=== PATIENT | female | born 1930 | race Caucasian/White ===

== ENCOUNTER 2016-09-13 12:47 | Inpatient (IN) | payer MEDICAID, OTHER ==
[~2016-09-13] VITALS: Ht 162.6 cm; Wt 70.5 kg
[2016-09-13] MEDS ORDERED: SODIUM CHLORIDE 0.9% 1,000 ML IV ONE (12:53)
[2016-09-13] MEDS ORDERED: FUROSEMIDE 40 MG/4 ML VIAL IV ONE (13:00)
[2016-09-13 13:14] LABS: Basophils # (auto) 0 uL; Basophils % (auto) 0.3 % (0.0-2.0); Eosinophils # (auto) 0 uL; Hematocrit 43.4 % (36.0-46.0); Hemoglobin 13.8 g/dL (12.2-16.2); Lymphocytes % (auto) 12.5 % (10.0-50.0); Mean Corpuscular Hgb Conc. 31.9 g/dL (32.0-36.0); Mean Corpuscular Volume 87.9 fL (80.0-100.0); Mean Platelet Volume 10.6 fL (7.4-10.4); Monocytes # (auto) 0.4 uL; Monocytes % (auto) 5.1 % (0.0-12.0); Neutrophils # (auto) 6.3 uL; Neutrophils % (auto) 82.1 % (37.0-80.0); Platelet Count (auto) 169 10^3/uL (140-450); Red Cell Distribution Width 16.3 % (11.6-16.0); White Blood Cell 7.6 10^3/uL (4.4-10.8)
[2016-09-13] MEDS ORDERED: methylPREDNISolone SOD SUCC 125 MG/2 ML VL IV ONE (13:15)
[2016-09-13] MEDS ORDERED: ALBUTEROL SULF 2.5 MG/0.5ML(0.5%) NEB SOLN NEB ONE (13:15)
[2016-09-13] MEDS ORDERED: IPRATROPIUM BROM 0.5 MG/2.5ML INH SOL NEB ONE (13:15)
[2016-09-13 13:20] LABS: Allen Test Yes; Base Excess 9.7 mmol/L (-2.0-2.0); Blood 02Sat 98.3 % (96-100); Blood COHb 0.5 % (0.5-1.5); Blood MetHb 0.3 % (0.0-1.5); HCO3 41.1 mmol/L (22-26.0); HHb 1.7 % (0.0-5.0); MODE MASK - NRB; O2Hb 97.5 % (94.0-97.0); PCO2 95.7 mmHg (35.0-45.0); PCO2(T) 95.7 mmHg (35.0-45.0); PO2 159.4 mmHg (80.0-100.0); PO2(T) 159.4 mmHg (80.0-100.0); Room ED-14; Sample Type Arterial; pH 7.251 (7.350-7.450)
[2016-09-13 13:58] LABS: Albumin 3.5 g/dL (3.4-5.0); Potassium 5.2 mmol/L (3.5-5.1); Total Protein 6.8 g/dL (6.4-8.2)
[2016-09-13 14:04] LABS: B-Type Natriuretic Peptide 1082.61 pg/mL (0-100)
[2016-09-13 14:07] LABS: Temperature: 22.5 C (20.0-25.0)
[2016-09-13 14:23] LABS: Urine Bilirubin Negative (Negative); Urine Color Yellow (Yellow); Urine Glucose Normal (Normal); Urine Ketone Negative (Negative); Urine Nitrite Negative (Negative); Urine RBC 104 /hpf (0 - 4); Urine Squamous Epithelial Cell FEW /hpf (<5); Urine Urobilinogen Normal (Negative); Urine pH 5.5 (5.0-8.0)
[2016-09-13 14:25] LABS: Urine Blood 2+ /uL (Negative)
[2016-09-13 14:30] LABS: INR > 10 (0.9-1.15)
[2016-09-13] MEDS ORDERED: MORPHINE SULF INJ 2 MG/ML SYRINGE 1ML IV PRN (14:45)
[2016-09-13] MEDS ORDERED: NITROGLYCERIN 0.4 MG SL TAB SL PRN (14:45)
[2016-09-13] MEDS ORDERED: ONDANSETRON HCL 4 MG/2 ML VIAL IV PRN (14:45)
[2016-09-13] MEDS ORDERED: hydrALAZINE HCL 20 MG/ML VL IV PRN (15:00)
[2016-09-13 15:01] LABS: Allen Test Yes; Base Excess 11.2 mmol/L (-2.0-2.0); Blood 02Sat 96.2 % (96-100); Blood COHb 0.7 % (0.5-1.5); Blood MetHb 0.2 % (0.0-1.5); HCO3 41.2 mmol/L (22-26.0); HHb 3.8 % (0.0-5.0); MODE MASK - BIPAP; O2Hb 95.3 % (94.0-97.0); PCO2 83.4 mmHg (35.0-45.0); PCO2(T) 83.4 mmHg (35.0-45.0); PO2 93.6 mmHg (80.0-100.0); PO2(T) 93.6 mmHg (80.0-100.0); Sample Type Arterial; Spont Vt 233; pH 7.312 (7.350-7.450)
[2016-09-13] MEDS: LEVOFLOXACIN 500MG 100 ML IV SCH (15:42)
[2016-09-13] MEDS ORDERED: AZITHROMYCIN 500MG/D5W 250ML 250 ML IV ONE (16:15)
[2016-09-13 16:35] LABS: Allen Test Yes; Base Excess 12.1 mmol/L (-2.0-2.0); Blood 02Sat 97.2 % (96-100); Blood COHb 0.5 % (0.5-1.5); Blood MetHb 0.2 % (0.0-1.5); HCO3 40.7 mmol/L (22-26.0); HHb 2.8 % (0.0-5.0); MODE MASK - BIPAP; O2Hb 96.5 % (94.0-97.0); PCO2 72.7 mmHg (35.0-45.0); PCO2(T) 72.7 mmHg (35.0-45.0); PO2 100.8 mmHg (80.0-100.0); PO2(T) 100.8 mmHg (80.0-100.0); Room 1009-ERT; Sample Type Arterial; Spont Vt 356; pH 7.366 (7.350-7.450)
[2016-09-13] MEDS ORDERED: PHYTONADIONE ORAL Susp 10 mg/10ml PO ONE (18:15)
[2016-09-13] MEDS: FUROSEMIDE 40 MG/4 ML VIAL IV SCH (18:23)
[2016-09-13 18:31] VITALS: BP 139/55
[2016-09-13] MEDS: ALBUTEROL SULF 2.5 MG/0.5ML(0.5%) NEB SOLN NEB SCH ×2 (18:31→23:33)
[2016-09-13] MEDS: IPRATROPIUM BROM 0.5 MG/2.5ML INH SOL NEB SCH ×2 (18:31→23:33)
[2016-09-13] MEDS ORDERED: FUROSEMIDE 20 MG/2 ML VIAL IV ONE (19:30)
[2016-09-13 20:38] LABS: Allen Test Yes; Base Excess 11.6 mmol/L (-2.0-2.0); Blood 02Sat 97.2 % (96-100); Blood COHb 0.6 % (0.5-1.5); Blood MetHb 0.2 % (0.0-1.5); HCO3 38.9 mmol/L (22-26.0); HHb 2.8 % (0.0-5.0); MODE NASAL CANNULA; O2Hb 96.4 % (94.0-97.0); PCO2 62.8 mmHg (35.0-45.0); PCO2(T) 62.8 mmHg (35.0-45.0); PO2 99.2 mmHg (80.0-100.0); PO2(T) 99.2 mmHg (80.0-100.0); Room 1009-ERT; Sample Type Arterial
[2016-09-13 23:33] VITALS: BP 143/64
[2016-09-14 02:05] VITALS: BP 155/71
[2016-09-14 03:31] VITALS: BP 155/71
[2016-09-14 04:10] LABS: Basophils # (auto) 0 uL; Basophils % (auto) 0.1 % (0.0-2.0); Eosinophils # (auto) 0 uL; Eosinophils % (auto) 0.1 % (0.0-7.0); Hemoglobin 13.5 g/dL (12.2-16.2); Lymphocytes # (auto) 0.6 uL; Lymphocytes % (auto) 12.5 % (10.0-50.0); Mean Corpuscular Hemoglobin 27.8 pg (28.0-32.0); Mean Corpuscular Volume 86.9 fL (80.0-100.0); Monocytes # (auto) 0.1 uL; Neutrophils # (auto) 4.2 uL; Neutrophils % (auto) 84.3 % (37.0-80.0); Platelet Count (auto) 152 10^3/uL (140-450); Red Cell Distribution Width 15.9 % (11.6-16.0); White Blood Cell 4.9 10^3/uL (4.4-10.8)
[2016-09-14 04:13] VITALS: BP 158/79
[2016-09-14 04:31] LABS: Albumin 3.2 g/dL (3.4-5.0); BUN/Creatinine Ratio 39.4; Calcium 8.1 mg/dL (8.5-10.1); Potassium 3.6 mmol/L (3.5-5.1)
[2016-09-14 04:34] LABS: Bilirubin, Total 1.1 mg/dL (0.2-1.0); Total Protein 6.8 g/dL (6.4-8.2)
[2016-09-14] MEDS ORDERED: SODIUM BICARBONATE 8.4 % INJ 50ML VIAL IV ONE (04:45)
[2016-09-14 04:55] LABS: INR > 10 (0.9-1.15)
[2016-09-14] MEDS ORDERED: PHYTONADIONE ORAL Susp 10 mg/10ml PO ONE (05:00)
[2016-09-14] MEDS: ALBUTEROL SULF 2.5 MG/0.5ML(0.5%) NEB SOLN NEB SCH ×4 (06:05→22:31)
[2016-09-14] MEDS: IPRATROPIUM BROM 0.5 MG/2.5ML INH SOL NEB SCH ×4 (06:05→22:32)
[2016-09-14] MEDS: FUROSEMIDE 40 MG/4 ML VIAL IV SCH ×2 (06:52→19:09)
[2016-09-14] MEDS ORDERED: FUROSEMIDE 20 MG/2 ML VIAL IV ONE (07:00)
[2016-09-14 07:27] LABS: Base Excess 21.5 mmol/L (-2.0-2.0); Blood 02Sat 90.5 % (96-100); Blood COHb 0.6 % (0.5-1.5); Blood MetHb 0.3 % (0.0-1.5); HCO3 49.9 mmol/L (22-26.0); HHb 9.4 % (0.0-5.0); MODE NASAL CANNULA; O2Hb 89.7 % (94.0-97.0); PCO2 71.1 mmHg (35.0-45.0); PCO2(T) 71.1 mmHg (35.0-45.0); PO2 58.4 mmHg (80.0-100.0); PO2(T) 58.4 mmHg (80.0-100.0); Room 1009-ERT; Sample Type Arterial; pH 7.464 (7.350-7.450)
[2016-09-14] MEDS ORDERED: AZITHROMYCIN 500MG/D5W 250ML 250 ML IV SCH (10:00)
[2016-09-14] MEDS: LEVOFLOXACIN 500MG 100 ML IV SCH (10:13)
[2016-09-14 10:55] LABS: Prothrombin Time 85.1 sec (9.37-12.3)
[2016-09-14 10:56] LABS: INR 7.65 (0.9-1.15)
[2016-09-14 18:15] VITALS: BP 143/78
[2016-09-14 20:00] VITALS: BP 104/62
[2016-09-14] MEDS: DRONEDARONE HCL 400 MG TAB PO SCH (21:47)
[2016-09-14 22:00] VITALS: BP 104/62
[2016-09-15 05:00] VITALS: BP 91/46
[2016-09-15] MEDS: FUROSEMIDE 40 MG/4 ML VIAL IV SCH ×2 (05:13→17:47)
[2016-09-15 06:26] LABS: Basophils # (auto) 0 uL; Eosinophils # (auto) 0 uL; Lymphocytes # (auto) 1.4 uL; Lymphocytes % (auto) 7.7 % (10.0-50.0); Mean Corpuscular Hgb Conc. 32.5 g/dL (32.0-36.0); Mean Corpuscular Volume 86.3 fL (80.0-100.0); Mean Platelet Volume 9.9 fL (7.4-10.4); Monocytes # (auto) 1.5 uL; Monocytes % (auto) 8.4 % (0.0-12.0); Neutrophils # (auto) 15.5 uL; Neutrophils % (auto) 83.9 % (37.0-80.0); Platelet Count (auto) 211 10^3/uL (140-450); White Blood Cell 18.5 10^3/uL (4.4-10.8)
[2016-09-15] MEDS: IPRATROPIUM BROM 0.5 MG/2.5ML INH SOL NEB SCH ×4 (06:26→23:48)
[2016-09-15] MEDS: ALBUTEROL SULF 2.5 MG/0.5ML(0.5%) NEB SOLN NEB SCH ×4 (06:27→23:48)
[2016-09-15] MEDS: FUROSEMIDE 20 MG/2 ML VIAL IV SCH ×2 (06:32→09:46)
[2016-09-15 06:39] LABS: Partial Thromboplastin Time 39.9 sec (22.64-33.71)
[2016-09-15 06:40] LABS: INR 2.81 (0.9-1.15); Prothrombin Time 30.9 sec (9.37-12.3)
[2016-09-15 08:00] VITALS: BP_SYST 80; BP_SYST 85; BP_DIAS 53
[2016-09-15] MEDS ORDERED: SODIUM CHL 0.9% 500 ML IV ONE (08:22)
[2016-09-15] MEDS ORDERED: VANCOMYCIN PER PHARMACY 0 MG IV SCH ×2 (08:30→08:45)
[2016-09-15] MEDS: VANCOMYCIN 1GM/250ML D5W 250 ML IV SCH (09:00)
[2016-09-15 09:17] LABS: Basophils # (auto) 0 uL; Basophils % (auto) 0.3 % (0.0-2.0); Eosinophils # (auto) 0 uL; Hematocrit 31.8 % (36.0-46.0); Hemoglobin 10.3 g/dL (12.2-16.2); Lymphocytes # (auto) 1.6 uL; Lymphocytes % (auto) 9.9 % (10.0-50.0); Mean Corpuscular Hgb Conc. 32.3 g/dL (32.0-36.0); Mean Corpuscular Volume 86.8 fL (80.0-100.0); Mean Platelet Volume 9.2 fL (7.4-10.4); Monocytes % (auto) 5.9 % (0.0-12.0); Neutrophils # (auto) 13.9 uL; Neutrophils % (auto) 83.9 % (37.0-80.0); Platelet Count (auto) 183 10^3/uL (140-450); Red Cell Distribution Width 16.2 % (11.6-16.0); White Blood Cell 16.6 10^3/uL (4.4-10.8)
[2016-09-15 09:33] LABS: Partial Thromboplastin Time 39.7 sec (22.64-33.71)
[2016-09-15 09:38] LABS: Albumin 2.5 g/dL (3.4-5.0); BUN/Creatinine Ratio 35.3; Bilirubin, Total 1.7 mg/dL (0.2-1.0); Calcium 7.8 mg/dL (8.5-10.1); Potassium 3.6 mmol/L (3.5-5.1); Total Protein 4.8 g/dL (6.4-8.2)
[2016-09-15] MEDS: SODIUM CHLORIDE 0.9% 1,000 ML IV SCH ×2 (09:46→18:22)
[2016-09-15] MEDS: DRONEDARONE HCL 400 MG TAB PO SCH ×2 (09:48→21:01)
[2016-09-15 09:53] LABS: INR 2.63 (0.9-1.15)
[2016-09-15 11:09] LABS: Fibrinogen 185.1 mg/dL (177-375)
[2016-09-15 12:00] VITALS: BP 107/45
[2016-09-15 12:04] LABS: Allen Test No; Base Excess 19.6 mmol/L (-2.0-2.0); Blood 02Sat 91.1 % (96-100); Blood COHb 0.4 % (0.5-1.5); Blood MetHb 0.3 % (0.0-1.5); HCO3 46.1 mmol/L (22-26.0); HHb 8.8 % (0.0-5.0); MODE NASAL CANNULA; O2Hb 90.5 % (94.0-97.0); PCO2 64.3 mmHg (35.0-45.0); PCO2(T) 64.3 mmHg (35.0-45.0); PO2 62.8 mmHg (80.0-100.0); PO2(T) 62.8 mmHg (80.0-100.0); Room 0237T; Sample Type Arterial; pH 7.473 (7.350-7.450)
[2016-09-15] MEDS: LEVOFLOXACIN 250MG 50 ML IV SCH (12:43)
[2016-09-15] MEDS ORDERED: SIMV5TAB50 PO (12:50)
[2016-09-15] MEDS ORDERED: FURO20TA PO (12:50)
[2016-09-15] MEDS ORDERED: WARF1TAB36 PO (12:50)
[2016-09-15] MEDS ORDERED: DIGO0.1262 PO (12:50)
[2016-09-15] MEDS ORDERED: DILT30TA24 PO (12:53)
[2016-09-15] MEDS ORDERED: CARV3.1240 PO (12:53)
[2016-09-15 16:06] VITALS: BP 106/55
[2016-09-15] MEDS: PHYTONADIONE (VIT K)10 MG/ML 1ML VIAL SUBCUT SCH (16:21)
[2016-09-15 18:57] LABS: Allen Test Yes; Base Excess 15.8 mmol/L (-2.0-2.0); Blood 02Sat 91.7 % (96-100); Blood COHb 0.3 % (0.5-1.5); Blood MetHb 0.2 % (0.0-1.5); HHb 8.3 % (0.0-5.0); MODE MASK - BIPAP; O2Hb 91.2 % (94.0-97.0); PCO2 53.9 mmHg (35.0-45.0); PCO2(T) 53.9 mmHg (35.0-45.0); PO2 64.5 mmHg (80.0-100.0); PO2(T) 64.5 mmHg (80.0-100.0); Room 0266D; Sample Type Arterial; pH 7.499 (7.350-7.450)
[2016-09-15 19:37] VITALS: BP 121/56
[2016-09-15 19:48] VITALS: BP 121/56
[2016-09-16] VITALS: BP 113/52
[2016-09-16 00:25] LABS: Allen Test Yes; Base Excess 17.9 mmol/L (-2.0-2.0); Blood 02Sat 92.3 % (96-100); Blood COHb 0.4 % (0.5-1.5); Blood MetHb 0.2 % (0.0-1.5); HCO3 45.4 mmol/L (22-26.0); HHb 7.7 % (0.0-5.0); MODE NASAL CANNULA; O2Hb 91.7 % (94.0-97.0); PO2 72.4 mmHg (80.0-100.0); PO2(T) 72.4 mmHg (80.0-100.0); Room 0266D; Sample Type Arterial; pH 7.418 (7.350-7.450)
[2016-09-16 04:00] VITALS: BP 132/73
[2016-09-16] MEDS: SODIUM CHLORIDE 0.9% 1,000 ML IV SCH ×2 (04:22→12:00)
[2016-09-16] MEDS: FUROSEMIDE 40 MG/4 ML VIAL IV SCH (05:02)
[2016-09-16 06:34] LABS: Partial Thromboplastin Time 39.8 sec (22.64-33.71)
[2016-09-16 06:36] LABS: INR 1.78 (0.9-1.15); Prothrombin Time 19.5 sec (9.37-12.3)
[2016-09-16] MEDS: IPRATROPIUM BROM 0.5 MG/2.5ML INH SOL NEB SCH ×4 (07:33→23:40)
[2016-09-16] MEDS: ALBUTEROL SULF 2.5 MG/0.5ML(0.5%) NEB SOLN NEB SCH ×4 (07:33→23:40)
[2016-09-16 08:00] VITALS: BP 105/50
[2016-09-16] MEDS: VANCOMYCIN 1GM/250ML D5W 250 ML IV SCH (09:04)
[2016-09-16 10:46] LABS: Allen Test Yes; Base Excess 14.3 mmol/L (-2.0-2.0); Blood 02Sat 87.3 % (96-100); Blood COHb 0.3 % (0.5-1.5); Blood MetHb 0.2 % (0.0-1.5); HCO3 39.6 mmol/L (22-26.0); HHb 12.6 % (0.0-5.0); MODE NASAL CANNULA; O2Hb 86.9 % (94.0-97.0); PCO2 54.1 mmHg (35.0-45.0); PCO2(T) 54.1 mmHg (35.0-45.0); PO2 53.5 mmHg (80.0-100.0); PO2(T) 53.5 mmHg (80.0-100.0); Room 0266D; Sample Type Arterial; pH 7.482 (7.350-7.450)
[2016-09-16] MEDS: FUROSEMIDE 20 MG/2 ML VIAL IV SCH (11:18)
[2016-09-16] MEDS: DRONEDARONE HCL 400 MG TAB PO SCH ×3 (11:19→21:03)
[2016-09-16] MEDS: LEVOFLOXACIN 250MG 50 ML IV SCH (11:19)
[2016-09-16 12:00] VITALS: BP 107/46
[2016-09-16 12:07] LABS: Antiproteinase 3 (PR-3) Ab <3.5 U/mL (0.0-3.5)
[2016-09-16 14:51] LABS: Body Fluid Polymorphonuclear 18 %
[2016-09-16 16:00] VITALS: BP 124/50
[2016-09-16] MEDS: PHYTONADIONE (VIT K)10 MG/ML 1ML VIAL SUBCUT SCH (18:02)
[2016-09-16 20:00] VITALS: BP 99/46
[2016-09-17] VITALS: BP 102/53
[2016-09-17] MEDS: SODIUM CHLORIDE 0.9% 1,000 ML IV SCH ×3 (00:22→20:22)
[2016-09-17 00:42] VITALS: BP 99/46
[2016-09-17 04:00] VITALS: BP 100/64
[2016-09-17 05:16] LABS: Albumin 2.3 g/dL (3.4-5.0); Calcium 7.6 mg/dL (8.5-10.1); Potassium 3.3 mmol/L (3.5-5.1)
[2016-09-17 05:18] LABS: Partial Thromboplastin Time 36.7 sec (22.64-33.71)
[2016-09-17 05:20] LABS: BUN/Creatinine Ratio 40.9; Phosphorus 1.9 mg/dL (2.5-4.90)
[2016-09-17 05:26] LABS: Bilirubin, Total 1.6 mg/dL (0.2-1.0); Total Protein 4.8 g/dL (6.4-8.2)
[2016-09-17 05:33] LABS: INR 1.35 (0.9-1.15); Prothrombin Time 14.8 sec (9.37-12.3)
[2016-09-17] MEDS: IPRATROPIUM BROM 0.5 MG/2.5ML INH SOL NEB SCH ×3 (07:32→19:42)
[2016-09-17] MEDS: ALBUTEROL SULF 2.5 MG/0.5ML(0.5%) NEB SOLN NEB SCH ×3 (07:32→19:42)
[2016-09-17] MEDS: VANCOMYCIN 1GM/250ML D5W 250 ML IV SCH (09:01)
[2016-09-17] MEDS: FUROSEMIDE 20 MG/2 ML VIAL IV SCH (10:00)
[2016-09-17] MEDS ORDERED: POTASSIUM CHL 20 Meq TABLET PO ONE (10:00)
[2016-09-17] MEDS ORDERED: POTASSIUM PHOSPHATE 44 MEQ in SODIUM CHL 0.9% 250 ML IV ONE (10:15)
[2016-09-17] MEDS: LEVOFLOXACIN 250MG 50 ML IV SCH (10:44)
[2016-09-17] MEDS: DRONEDARONE HCL 400 MG TAB PO SCH ×2 (10:46→21:27)
[2016-09-17] MEDS: DOCUSATE SOD 100 MG CAP PO PRN (10:46)
[2016-09-17 12:03] VITALS: BP 116/58
[2016-09-17 16:00] VITALS: BP 107/53
[2016-09-17] MEDS: PHYTONADIONE (VIT K)10 MG/ML 1ML VIAL SUBCUT SCH (16:44)
[2016-09-17 20:00] VITALS: BP 103/49
[2016-09-18] VITALS: BP 109/58
[2016-09-18] MEDS: IPRATROPIUM BROM 0.5 MG/2.5ML INH SOL NEB SCH ×4 (00:41→19:09)
[2016-09-18] MEDS: ALBUTEROL SULF 2.5 MG/0.5ML(0.5%) NEB SOLN NEB SCH ×4 (00:41→19:09)
[2016-09-18 03:59] VITALS: BP 104/51
[2016-09-18] MEDS: SODIUM CHLORIDE 0.9% 1,000 ML IV SCH ×2 (04:55→08:43)
[2016-09-18 06:14] LABS: Basophils # (auto) 0 uL; Basophils % (auto) 0.1 % (0.0-2.0); CONDITION AutoValidated; Eosinophils # (auto) 0.1 uL; Eosinophils % (auto) 0.5 % (0.0-7.0); Hematocrit 26.5 % (36.0-46.0); Hemoglobin 8.6 g/dL (12.2-16.2); Lymphocytes # (auto) 1.2 uL; Lymphocytes % (auto) 11.8 % (10.0-50.0); Mean Corpuscular Hemoglobin 28.1 pg (28.0-32.0); Mean Corpuscular Hgb Conc. 32.3 g/dL (32.0-36.0); Mean Corpuscular Volume 86.9 fL (80.0-100.0); Mean Platelet Volume 9.3 fL (7.4-10.4); Monocytes # (auto) 1.1 uL; Monocytes % (auto) 11.2 % (0.0-12.0); Neutrophils # (auto) 7.8 uL; Neutrophils % (auto) 76.4 % (37.0-80.0); Red Cell Distribution Width 16.3 % (11.6-16.0); White Blood Cell 10.1 10^3/uL (4.4-10.8)
[2016-09-18 06:17] LABS: Partial Thromboplastin Time 33.6 sec (22.64-33.71); Platelet Count (auto) 150 10^3/uL (140-450)
[2016-09-18 06:22] LABS: Potassium 3.8 mmol/L (3.5-5.1)
[2016-09-18 06:24] LABS: INR 1.21 (0.9-1.15); Prothrombin Time 13.2 sec (9.37-12.3)
[2016-09-18 06:26] LABS: BUN/Creatinine Ratio 33.3; Calcium 7.5 mg/dL (8.5-10.1)
[2016-09-18] MEDS: VANCOMYCIN 1GM/250ML D5W 250 ML IV SCH (08:42)
[2016-09-18] MEDS: FUROSEMIDE 20 MG/2 ML VIAL IV SCH (10:31)
[2016-09-18] MEDS: ENOXAPARIN SOD 40 MG/0.4 ML SYRINGE SC SCH (10:32)
[2016-09-18] MEDS: DRONEDARONE HCL 400 MG TAB PO SCH ×2 (10:32→22:11)
[2016-09-18] MEDS: LEVOFLOXACIN 250MG 50 ML IV SCH (11:38)
[2016-09-18 11:54] VITALS: BP 118/63
[2016-09-18 16:00] VITALS: BP 104/47
[2016-09-18] MEDS ORDERED: WARFARIN SODIUM 2 MG TAB PO ONE (17:00)
[2016-09-18] MEDS: LACTULOSE 20Gm/30ML SOLN PO PRN (18:30)
[2016-09-18] MEDS ORDERED: BISACODYL 10 MG RECT SUPP PR ONE (19:45)
[2016-09-18 20:00] VITALS: BP 131/76
[2016-09-19] VITALS: BP 116/75
[2016-09-19] MEDS: IPRATROPIUM BROM 0.5 MG/2.5ML INH SOL NEB SCH ×4 (00:27→18:11)
[2016-09-19] MEDS: ALBUTEROL SULF 2.5 MG/0.5ML(0.5%) NEB SOLN NEB SCH ×4 (00:27→18:11)
[2016-09-19] MEDS: SODIUM CHLORIDE 0.9% 1,000 ML IV SCH ×3 (02:22→22:06)
[2016-09-19 06:21] LABS: INR 1.16 (0.9-1.15); Prothrombin Time 12.7 sec (9.37-12.3)
[2016-09-19 06:51] LABS: Basophils # (auto) 0 uL; CONDITION AutoValidated; DEFINITIVE SEE PRINTOUT; Eosinophils # (auto) 0 uL; Eosinophils % (auto) 0.3 % (0.0-7.0); Hemoglobin 8.4 g/dL (12.2-16.2); Lymphocytes # (auto) 1.2 uL; Lymphocytes % (auto) 8.5 % (10.0-50.0); Mean Corpuscular Hemoglobin 28.4 pg (28.0-32.0); Mean Corpuscular Hgb Conc. 32.5 g/dL (32.0-36.0); Mean Corpuscular Volume 87.3 fL (80.0-100.0); Mean Platelet Volume 9.3 fL (7.4-10.4); Monocytes # (auto) 1.6 uL; Monocytes % (auto) 11.7 % (0.0-12.0); Neutrophils # (auto) 11.1 uL; Neutrophils % (auto) 79.5 % (37.0-80.0); Platelet Count (auto) 147 10^3/uL (140-450); Red Cell Distribution Width 16.7 % (11.6-16.0)
[2016-09-19 07:08] LABS: Albumin 2.3 g/dL (3.4-5.0); BUN/Creatinine Ratio 27.1; Bilirubin, Total 2.3 mg/dL (0.2-1.0); Calcium 7.2 mg/dL (8.5-10.1); Potassium 3.3 mmol/L (3.5-5.1); Total Protein 4.7 g/dL (6.4-8.2)
[2016-09-19] MEDS: ENOXAPARIN SOD 40 MG/0.4 ML SYRINGE SC SCH (09:57)
[2016-09-19] MEDS: FUROSEMIDE 20 MG/2 ML VIAL IV SCH (10:09)
[2016-09-19] MEDS: LEVOFLOXACIN 250MG 50 ML IV SCH (10:09)
[2016-09-19] MEDS: DRONEDARONE HCL 400 MG TAB PO SCH ×2 (10:09→21:26)
[2016-09-19 11:59] VITALS: BP 132/70
[2016-09-19 16:00] VITALS: BP 111/57
[2016-09-19] MEDS ORDERED: POTASSIUM CHL 20 Meq TABLET PO ONE (17:00)
[2016-09-19] MEDS: VANCOMYCIN 750 MG in D5W 5% 250 ML IV SCH (17:37)
[2016-09-19 19:52] VITALS: BP 108/55
[2016-09-20] MEDS: IPRATROPIUM BROM 0.5 MG/2.5ML INH SOL NEB SCH ×4 (00:34→18:16)
[2016-09-20] MEDS: ALBUTEROL SULF 2.5 MG/0.5ML(0.5%) NEB SOLN NEB SCH ×4 (00:34→18:16)
[2016-09-20 04:40] VITALS: BP 106/56
[2016-09-20 07:18] LABS: BUN/Creatinine Ratio 20.9; Calcium 7.4 mg/dL (8.5-10.1); Potassium 3.9 mmol/L (3.5-5.1)
[2016-09-20] MEDS: SODIUM CHLORIDE 0.9% 1,000 ML IV SCH ×2 (07:43→17:48)
[2016-09-20 08:44] VITALS: BP 102/50
[2016-09-20] MEDS: ENOXAPARIN SOD 40 MG/0.4 ML SYRINGE SC SCH (10:02)
[2016-09-20] MEDS: DRONEDARONE HCL 400 MG TAB PO SCH ×2 (10:03→21:57)
[2016-09-20] MEDS: FUROSEMIDE 20 MG/2 ML VIAL IV SCH (10:05)
[2016-09-20] MEDS: LEVOFLOXACIN 250MG 50 ML IV SCH (10:11)
[2016-09-20 12:37] LABS: Basophils # (auto) 0 uL; CONDITION Y; DEFINITIVE SEE PRINTOUT; Eosinophils # (auto) 0 uL; Eosinophils % (auto) 0.2 % (0.0-7.0); Hematocrit 25.5 % (36.0-46.0); Hemoglobin 8.3 g/dL (12.2-16.2); Lymphocytes # (auto) 0.8 uL; Lymphocytes % (auto) 4.6 % (10.0-50.0); Mean Corpuscular Hgb Conc. 32.5 g/dL (32.0-36.0); Mean Corpuscular Volume 89.1 fL (80.0-100.0); Monocytes % (auto) 11.2 % (0.0-12.0); Neutrophils # (auto) 15.3 uL; Platelet Count (auto) 159 10^3/uL (140-450); Red Cell Distribution Width 17.1 % (11.6-16.0); White Blood Cell 18.2 10^3/uL (4.4-10.8)
[2016-09-20 12:40] VITALS: BP 108/46
[2016-09-20 12:52] LABS: Partial Thromboplastin Time 39.2 sec (22.64-33.71)
[2016-09-20 12:53] LABS: INR 1.2 (0.9-1.15); Prothrombin Time 13.1 sec (9.37-12.3)
[2016-09-20 13:17] VITALS: BP 108/46
[2016-09-20 16:45] VITALS: BP 122/56
[2016-09-20] MEDS: VANCOMYCIN 750 MG in D5W 5% 250 ML IV SCH (17:47)
[2016-09-20 21:50] VITALS: BP 117/60
[2016-09-21] MEDS: IPRATROPIUM BROM 0.5 MG/2.5ML INH SOL NEB SCH ×4 (00:22→19:10)
[2016-09-21] MEDS: ALBUTEROL SULF 2.5 MG/0.5ML(0.5%) NEB SOLN NEB SCH ×4 (00:22→19:10)
[2016-09-21 05:08] VITALS: BP 122/65
[2016-09-21] MEDS: SODIUM CHLORIDE 0.9% 1,000 ML IV SCH ×3 (06:11→17:27)
[2016-09-21 07:17] LABS: Basophils # (auto) 0 uL; Basophils % (auto) 0.1 % (0.0-2.0); CONDITION Y; DEFINITIVE SEE PRINTOUT; Eosinophils # (auto) 0 uL; Eosinophils % (auto) 0.2 % (0.0-7.0); Hemoglobin 8.3 g/dL (12.2-16.2); Lymphocytes # (auto) 0.8 uL; Lymphocytes % (auto) 4.3 % (10.0-50.0); Mean Corpuscular Hemoglobin 29.2 pg (28.0-32.0); Mean Corpuscular Hgb Conc. 33.1 g/dL (32.0-36.0); Mean Corpuscular Volume 88.3 fL (80.0-100.0); Mean Platelet Volume 9.3 fL (7.4-10.4); Monocytes # (auto) 1.8 uL; Monocytes % (auto) 10.5 % (0.0-12.0); Neutrophils # (auto) 14.8 uL; Neutrophils % (auto) 84.9 % (37.0-80.0); Platelet Count (auto) 159 10^3/uL (140-450); Red Cell Distribution Width 17.2 % (11.6-16.0); White Blood Cell 17.4 10^3/uL (4.4-10.8)
[2016-09-21 07:34] LABS: Reticulocyte Count 3.77 % (0.5-1.5)
[2016-09-21 08:28] VITALS: BP 114/64
[2016-09-21] MEDS: DOCUSATE SOD 100 MG CAP PO PRN (08:37)
[2016-09-21] MEDS: DRONEDARONE HCL 400 MG TAB PO SCH ×2 (09:56→21:50)
[2016-09-21] MEDS: ENOXAPARIN SOD 40 MG/0.4 ML SYRINGE SC SCH (09:56)
[2016-09-21] MEDS: FUROSEMIDE 20 MG/2 ML VIAL IV SCH (09:56)
[2016-09-21] MEDS: LEVOFLOXACIN 250MG 50 ML IV SCH (11:52)
[2016-09-21 12:15] VITALS: BP 122/58
[2016-09-21 16:18] VITALS: BP 119/61
[2016-09-21] MEDS: VANCOMYCIN 1GM/250ML D5W 250 ML IV SCH (17:25)
[2016-09-21] MEDS: LACTULOSE 20Gm/30ML SOLN PO PRN (18:39)
[2016-09-21 21:11] VITALS: BP 128/67
[2016-09-21] MEDS: FERROUS SULFATE 300 MG/5 ML ORAL LIQ GT SCH (21:50)
[2016-09-22] MEDS ORDERED: DIGOXIN (250MCG/ML) 2 ML AMPULE IV ONE (00:30)
[2016-09-22] MEDS ORDERED: FUROSEMIDE 40 MG/4 ML VIAL IV ONE (00:30)
[2016-09-22] MEDS ORDERED: DIGOXIN (250MCG/ML) 2 ML AMPULE ONE (00:33)
[2016-09-22] MEDS ORDERED: FUROSEMIDE 40 MG/4 ML VIAL ONE (00:33)
[2016-09-22] MEDS: ALPRAZolam 0.25 MG TAB PO PRN (01:49)
[2016-09-22 05:00] VITALS: BP 119/63
[2016-09-22] MEDS: SODIUM CHLOR 0.9% PF (SALINE LOCK) 10ML VIAL IV SCH ×3 (06:00→22:04)
[2016-09-22] MEDS: ALBUTEROL SULF 2.5 MG/0.5ML(0.5%) NEB SOLN NEB SCH ×3 (06:06→18:15)
[2016-09-22] MEDS: IPRATROPIUM BROM 0.5 MG/2.5ML INH SOL NEB SCH ×3 (06:06→18:15)
[2016-09-22 06:36] LABS: INR 1.12 (0.9-1.15); Partial Thromboplastin Time 37.3 sec (22.64-33.71); Prothrombin Time 12.2 sec (9.37-12.3)
[2016-09-22 08:00] VITALS: BP 125/33
[2016-09-22] MEDS: DRONEDARONE HCL 400 MG TAB PO SCH ×2 (10:17→21:58)
[2016-09-22] MEDS: ENOXAPARIN SOD 40 MG/0.4 ML SYRINGE SC SCH (10:17)
[2016-09-22] MEDS: FERROUS SULFATE 300 MG/5 ML ORAL LIQ GT SCH ×2 (10:17→21:58)
[2016-09-22] MEDS: FUROSEMIDE 20 MG/2 ML VIAL IV SCH (10:18)
[2016-09-22] MEDS: LEVOFLOXACIN 250MG 50 ML IV SCH (11:45)
[2016-09-22 12:59] VITALS: BP 135/62
[2016-09-22 17:25] VITALS: BP 129/57
[2016-09-22] MEDS: VANCOMYCIN 1GM/250ML D5W 250 ML IV SCH (18:17)
[2016-09-22 20:53] LABS: Allen Test Yes; Base Excess 4.6 mmol/L (-2.0-2.0); Blood 02Sat 85.4 % (96-100); Blood MetHb 0.3 % (0.0-1.5); HCO3 29.7 mmol/L (22-26.0); HHb 14.3 % (0.0-5.0); MODE MASK - VENTI; O2Hb 83.4 % (94.0-97.0); PCO2 46.8 mmHg (35.0-45.0); PCO2(T) 46.8 mmHg (35.0-45.0); PO2 51.6 mmHg (80.0-100.0); PO2(T) 51.6 mmHg (80.0-100.0); Room 0234T; Sample Type Arterial; pH 7.421 (7.350-7.450)
[2016-09-22 21:30] VITALS: BP 109/49
[2016-09-23 05:00] VITALS: BP 117/54
[2016-09-23 05:07] LABS: Haptoglobin <10 mg/dL (34-200)
[2016-09-23 05:32] LABS: INR 1.21 (0.9-1.15); Partial Thromboplastin Time 35.2 sec (22.64-33.71)
[2016-09-23 05:34] LABS: Prothrombin Time 13.2 sec (9.37-12.3)
[2016-09-23] MEDS: SODIUM CHLOR 0.9% PF (SALINE LOCK) 10ML VIAL IV SCH ×3 (05:34→21:44)
[2016-09-23 05:42] LABS: Albumin 2.2 g/dL (3.4-5.0); BUN/Creatinine Ratio 19.1; Calcium 7.6 mg/dL (8.5-10.1); Potassium 3.1 mmol/L (3.5-5.1)
[2016-09-23 05:45] LABS: Bilirubin, Total 3.3 mg/dL (0.2-1.0); Total Protein 5.3 g/dL (6.4-8.2)
[2016-09-23] MEDS: ALBUTEROL SULF 2.5 MG/0.5ML(0.5%) NEB SOLN NEB SCH ×3 (06:28→18:34)
[2016-09-23] MEDS: IPRATROPIUM BROM 0.5 MG/2.5ML INH SOL NEB SCH ×3 (06:28→18:33)
[2016-09-23 08:02] LABS: Basophils # (auto) 0 uL; Basophils % (auto) 0.1 % (0.0-2.0); CONDITION Y; DEFINITIVE SEE PRINTOUT; Eosinophils # (auto) 0 uL; Eosinophils % (auto) 0.1 % (0.0-7.0); Hematocrit 29.4 % (36.0-46.0); Hemoglobin 9.5 g/dL (12.2-16.2); Lymphocytes # (auto) 0.7 uL; Lymphocytes % (auto) 4.4 % (10.0-50.0); Mean Corpuscular Hemoglobin 28.8 pg (28.0-32.0); Mean Corpuscular Hgb Conc. 32.2 g/dL (32.0-36.0); Mean Corpuscular Volume 89.4 fL (80.0-100.0); Monocytes # (auto) 1.4 uL; Neutrophils # (auto) 13.9 uL; Neutrophils % (auto) 86.4 % (37.0-80.0); Platelet Count (auto) 189 10^3/uL (140-450); Red Cell Distribution Width 19.4 % (11.6-16.0); White Blood Cell 16.1 10^3/uL (4.4-10.8)
[2016-09-23 09:00] VITALS: BP 134/61
[2016-09-23] MEDS: FERROUS SULFATE 300 MG/5 ML ORAL LIQ GT SCH ×2 (10:00→21:43)
[2016-09-23] MEDS: ENOXAPARIN SOD 40 MG/0.4 ML SYRINGE SC SCH (10:00)
[2016-09-23] MEDS: LEVOFLOXACIN 250MG 50 ML IV SCH (10:01)
[2016-09-23] MEDS: DRONEDARONE HCL 400 MG TAB PO SCH ×2 (10:01→21:43)
[2016-09-23] MEDS: FUROSEMIDE 20 MG/2 ML VIAL IV SCH (10:02)
[2016-09-23] MEDS: ACETYLCYSTEINE 10 %(100MG/ML) SOL 4ML NEB SCH ×2 (11:54→18:34)
[2016-09-23 13:00] VITALS: BP 128/56
[2016-09-23] MEDS ORDERED: ACETYLCYSTEINE 10 %(100MG/ML) SOL 4ML NEB SCH (14:00)
[2016-09-23] MEDS ORDERED: POTASSIUM CHLORIDE 20 MEQ, LIDOCAINE 1% (LOCAL ANESTH.) 2 ML in SODIUM CHL 0.9% 100 ML IV ONE (14:00)
[2016-09-23] MEDS: VANCOMYCIN 1GM/250ML D5W 250 ML IV SCH (17:11)
[2016-09-23 17:23] VITALS: BP 116/58
[2016-09-23 21:30] VITALS: BP 105/53
[2016-09-23] MEDS: BOOST PLUS 8 ounce PO SCH (21:44)
[2016-09-24 02:59] VITALS: BP 105/53
[2016-09-24 04:59] VITALS: BP 100/50
[2016-09-24] MEDS: IPRATROPIUM BROM 0.5 MG/2.5ML INH SOL NEB SCH ×5 (06:21→22:00)
[2016-09-24] MEDS: ALBUTEROL SULF 2.5 MG/0.5ML(0.5%) NEB SOLN NEB SCH ×5 (06:21→22:00)
[2016-09-24] MEDS: ACETYLCYSTEINE 10 %(100MG/ML) SOL 4ML NEB SCH ×5 (06:22→22:00)
[2016-09-24] MEDS: SODIUM CHLOR 0.9% PF (SALINE LOCK) 10ML VIAL IV SCH ×3 (06:29→21:26)
[2016-09-24] MEDS: BOOST PLUS 8 ounce PO SCH ×3 (06:29→21:27)
[2016-09-24] MEDS ORDERED: GLYCOPYRROLATE 0.2 MG/ML 1ML VIAL ONE (08:00)
[2016-09-24] MEDS ORDERED: NALOXONE HCL 0.4 MG/ML VIAL ONE (08:03)
[2016-09-24] MEDS ORDERED: EPINEPHrine HCL 1 MG/1 ML AMP ONE (08:04)
[2016-09-24] MEDS ORDERED: SODIUM CHLORIDE LOCK 30 ML ONE (08:04)
[2016-09-24] MEDS ORDERED: LIDOCAINE 2%HCL (LOCAL ANESTH.) INJ 20ML MDV ONE (08:04)
[2016-09-24] MEDS ORDERED: LIDOCAINE HCL 2% TOP JELLY 5ML TOP ONE (08:05)
[2016-09-24] MEDS ORDERED: fentaNYL CITRATE 100 MCG/2 ML VL ONE (08:59)
[2016-09-24 09:00] VITALS: BP 104/49
[2016-09-24] MEDS: MIDAZOLAM HCL 5 MG/ML-1ML VIAL ONE ×2 (09:22→09:33)
[2016-09-24] MEDS ORDERED: METOPROLOL TARTRATE 1MG/1ML-5ML VIAL IV ONE (10:17)
[2016-09-24] MEDS ORDERED: SOD CHL 0.9%/ KCL 20MEQ 1,000 ML IV STA (10:18)
[2016-09-24] MEDS: POTASSIUM CHL 20 Meq TABLET PO ONE ×2 (10:29→13:00)
[2016-09-24] MEDS: METOPROLOL TARTRATE 1MG/1ML-5ML VIAL IV ONE ×2 (10:29→13:00)
[2016-09-24] MEDS: FERROUS SULFATE 300 MG/5 ML ORAL LIQ GT SCH ×2 (13:00→21:26)
[2016-09-24] MEDS: FUROSEMIDE 20 MG/2 ML VIAL IV SCH (13:00)
[2016-09-24] MEDS: ENOXAPARIN SOD 40 MG/0.4 ML SYRINGE SC SCH (13:00)
[2016-09-24] MEDS: METOPROLOL TARTRATE 1MG/1ML-5ML VIAL IV SCH ×2 (13:00→18:45)
[2016-09-24] MEDS: DRONEDARONE HCL 400 MG TAB PO SCH ×2 (13:00→21:26)
[2016-09-24] MEDS: LEVOFLOXACIN 250MG 50 ML IV SCH (14:16)
[2016-09-24 14:19] LABS: B-Type Natriuretic Peptide 1657.8 pg/mL (0-100)
[2016-09-24 14:28] LABS: Temperature: 24.3 C (20.0-25.0)
[2016-09-24 16:00] VITALS: BP 103/54
[2016-09-24] MEDS ORDERED: IPRATROPIUM BROM 0.5 MG/2.5ML INH SOL NEB SCH (18:00)
[2016-09-24] MEDS: VANCOMYCIN 1GM/250ML D5W 250 ML IV SCH (18:12)
[2016-09-24 20:00] VITALS: BP 100/68
[2016-09-25] VITALS: BP 115/60
[2016-09-25 04:00] VITALS: BP 103/56
[2016-09-25 05:07] LABS: Basophils # (auto) 0 uL; CONDITION Y; DEFINITIVE SEE PRINTOUT; Eosinophils # (auto) 0 uL; Eosinophils % (auto) 0.2 % (0.0-7.0); Hematocrit 30.1 % (36.0-46.0); Hemoglobin 9.8 g/dL (12.2-16.2); Lymphocytes # (auto) 0.8 uL; Mean Corpuscular Hemoglobin 29.2 pg (28.0-32.0); Mean Corpuscular Hgb Conc. 32.5 g/dL (32.0-36.0); Mean Corpuscular Volume 89.9 fL (80.0-100.0); Mean Platelet Volume 8.8 fL (7.4-10.4); Monocytes % (auto) 6.2 % (0.0-12.0); Neutrophils % (auto) 88.6 % (37.0-80.0); Platelet Count (auto) 175 10^3/uL (140-450); SUSPECT SEE PRINTOUT; White Blood Cell 15.8 10^3/uL (4.4-10.8)
[2016-09-25 05:26] LABS: BUN/Creatinine Ratio 28.8; Calcium 7.7 mg/dL (8.5-10.1); Potassium 4.4 mmol/L (3.5-5.1)
[2016-09-25 05:35] LABS: B-Type Natriuretic Peptide 1718.84 pg/mL (0-100)
[2016-09-25 05:38] LABS: Temperature: 22.5 C (20.0-25.0)
[2016-09-25 05:40] LABS: Anisocytosis Slight; Platelet Estimate Adequate
[2016-09-25 05:41] LABS: Burr Cells MODERATE; Ovalocytes FEW; Polychromasia Slight
[2016-09-25] MEDS: METOPROLOL TARTRATE 1MG/1ML-5ML VIAL IV SCH ×4 (06:00→18:00)
[2016-09-25] MEDS: IPRATROPIUM BROM 0.5 MG/2.5ML INH SOL NEB SCH ×6 (06:13→22:55)
[2016-09-25] MEDS: ALBUTEROL SULF 2.5 MG/0.5ML(0.5%) NEB SOLN NEB SCH ×6 (06:13→22:54)
[2016-09-25] MEDS: ACETYLCYSTEINE 10 %(100MG/ML) SOL 4ML NEB SCH ×6 (06:13→22:55)
[2016-09-25] MEDS: BOOST PLUS 8 ounce PO SCH ×3 (06:15→22:15)
[2016-09-25] MEDS: SODIUM CHLOR 0.9% PF (SALINE LOCK) 10ML VIAL IV SCH ×3 (06:15→22:14)
[2016-09-25] MEDS: ENOXAPARIN SOD 40 MG/0.4 ML SYRINGE SC SCH (11:24)
[2016-09-25] MEDS: FERROUS SULFATE 300 MG/5 ML ORAL LIQ GT SCH ×2 (11:24→22:14)
[2016-09-25] MEDS: LEVOFLOXACIN 250MG 50 ML IV SCH (11:24)
[2016-09-25] MEDS: FUROSEMIDE 20 MG/2 ML VIAL IV SCH (11:25)
[2016-09-25] MEDS: DRONEDARONE HCL 400 MG TAB PO SCH ×2 (11:30→22:14)
[2016-09-25 12:00] VITALS: BP 129/60
[2016-09-25 16:00] VITALS: BP 110/48
[2016-09-25] MEDS: VANCOMYCIN 1GM/250ML D5W 250 ML IV SCH (17:43)
[2016-09-25] MEDS: LACTULOSE 20Gm/30ML SOLN PO PRN (17:48)
[2016-09-25 19:50] VITALS: BP 110/59
[2016-09-26] VITALS (8 sets, daily range): BP systolic 100–156; BP diastolic 48–84
[2016-09-26] MEDS: IPRATROPIUM BROM 0.5 MG/2.5ML INH SOL NEB SCH ×6 (02:48→22:19)
[2016-09-26] MEDS: ACETYLCYSTEINE 10 %(100MG/ML) SOL 4ML NEB SCH ×6 (02:49→22:19)
[2016-09-26] MEDS: ALBUTEROL SULF 2.5 MG/0.5ML(0.5%) NEB SOLN NEB SCH ×6 (02:49→22:19)
[2016-09-26 05:34] LABS: Basophils # (auto) 0 uL; CONDITION Y; DEFINITIVE SEE PRINTOUT; Eosinophils # (auto) 0.1 uL; Eosinophils % (auto) 0.4 % (0.0-7.0); Hematocrit 31.4 % (36.0-46.0); Hemoglobin 10.3 g/dL (12.2-16.2); Lymphocytes # (auto) 1.2 uL; Lymphocytes % (auto) 7.3 % (10.0-50.0); Mean Corpuscular Hemoglobin 29.4 pg (28.0-32.0); Mean Corpuscular Hgb Conc. 32.8 g/dL (32.0-36.0); Mean Corpuscular Volume 89.6 fL (80.0-100.0); Mean Platelet Volume 9.4 fL (7.4-10.4); Monocytes # (auto) 0.7 uL; Monocytes % (auto) 4.4 % (0.0-12.0); Neutrophils # (auto) 14.6 uL; Neutrophils % (auto) 87.9 % (37.0-80.0); Platelet Count (auto) 127 10^3/uL (140-450); SUSPECT SEE PRINTOUT; White Blood Cell 16.6 10^3/uL (4.4-10.8)
[2016-09-26 05:43] LABS: Red Cell Distribution Width 21.1 % (11.6-16.0)
[2016-09-26 06:00] LABS: BUN/Creatinine Ratio 33.3; Calcium 7.6 mg/dL (8.5-10.1); Potassium 3.7 mmol/L (3.5-5.1)
[2016-09-26] MEDS: METOPROLOL TARTRATE 1MG/1ML-5ML VIAL IV SCH ×5 (06:00→23:46)
[2016-09-26] MEDS: BOOST PLUS 8 ounce PO SCH ×3 (06:00→21:40)
[2016-09-26] MEDS: SODIUM CHLOR 0.9% PF (SALINE LOCK) 10ML VIAL IV SCH ×3 (06:16→21:40)
[2016-09-26 06:54] LABS: Anisocytosis Slight; Burr Cells FEW; Ovalocytes FEW; Platelet Estimate Decreased
[2016-09-26] MEDS: DOCUSATE SOD 100 MG CAP PO PRN (09:21)
[2016-09-26] MEDS: FUROSEMIDE 40 MG/4 ML VIAL IV SCH (09:36)
[2016-09-26] MEDS: FERROUS SULFATE 300 MG/5 ML ORAL LIQ GT SCH ×3 (09:36→21:40)
[2016-09-26] MEDS: DRONEDARONE HCL 400 MG TAB PO SCH ×2 (09:37→21:41)
[2016-09-26] MEDS: ENOXAPARIN SOD 40 MG/0.4 ML SYRINGE SC SCH (09:37)
[2016-09-26] MEDS: LEVOFLOXACIN 250MG 50 ML IV SCH (10:43)
[2016-09-26] MEDS: VANCOMYCIN 1GM/250ML D5W 250 ML IV SCH (17:22)
[2016-09-27] MEDS: HYDROcodone-ACET 5/325MG TAB PO PRN ×2 (01:36→22:15)
[2016-09-27] MEDS: ALBUTEROL SULF 2.5 MG/0.5ML(0.5%) NEB SOLN NEB SCH ×6 (02:26→22:55)
[2016-09-27] MEDS: IPRATROPIUM BROM 0.5 MG/2.5ML INH SOL NEB SCH ×6 (02:26→22:55)
[2016-09-27] MEDS: ACETYLCYSTEINE 10 %(100MG/ML) SOL 4ML NEB SCH ×6 (02:26→22:55)
[2016-09-27 04:47] VITALS: BP 95/51
[2016-09-27] MEDS: METOPROLOL TARTRATE 1MG/1ML-5ML VIAL IV SCH ×4 (05:27→23:49)
[2016-09-27] MEDS: SODIUM CHLOR 0.9% PF (SALINE LOCK) 10ML VIAL IV SCH ×3 (05:28→21:48)
[2016-09-27] MEDS: BOOST PLUS 8 ounce PO SCH ×3 (05:42→21:48)
[2016-09-27 06:40] LABS: Potassium 3.5 mmol/L (3.5-5.1)
[2016-09-27 06:43] LABS: Basophils # (auto) 0 uL; Basophils % (auto) 0.2 % (0.0-2.0); CONDITION Y; DEFINITIVE SEE PRINTOUT; Eosinophils # (auto) 0 uL; Eosinophils % (auto) 0.4 % (0.0-7.0); Hematocrit 29.9 % (36.0-46.0); Hemoglobin 9.7 g/dL (12.2-16.2); Lymphocytes # (auto) 0.6 uL; Lymphocytes % (auto) 5.7 % (10.0-50.0); Mean Corpuscular Hemoglobin 29.5 pg (28.0-32.0); Mean Corpuscular Hgb Conc. 32.4 g/dL (32.0-36.0); Mean Corpuscular Volume 91.1 fL (80.0-100.0); Monocytes # (auto) 0.9 uL; Monocytes % (auto) 8.5 % (0.0-12.0); Neutrophils # (auto) 8.9 uL; Neutrophils % (auto) 85.2 % (37.0-80.0); Platelet Count (auto) 160 10^3/uL (140-450); SUSPECT SEE PRINTOUT; White Blood Cell 10.4 10^3/uL (4.4-10.8)
[2016-09-27 06:55] LABS: Albumin 2.1 g/dL (3.4-5.0); BUN/Creatinine Ratio 33.6; Bilirubin, Total 1.8 mg/dL (0.2-1.0); Calcium 7.7 mg/dL (8.5-10.1); Total Protein 4.9 g/dL (6.4-8.2)
[2016-09-27 07:08] LABS: Red Cell Distribution Width 22.3 % (11.6-16.0)
[2016-09-27 08:06] LABS: Anisocytosis Moderate; Platelet Estimate Adequate
[2016-09-27 08:07] LABS: Burr Cells FEW; Ovalocytes FEW
[2016-09-27 08:09] LABS: Tear Drop Cells FEW
[2016-09-27 09:00] VITALS: BP 95/47
[2016-09-27] MEDS: DRONEDARONE HCL 400 MG TAB PO SCH ×2 (10:00→21:48)
[2016-09-27] MEDS: FERROUS SULFATE 300 MG/5 ML ORAL LIQ GT SCH ×2 (10:00→21:48)
[2016-09-27] MEDS: ENOXAPARIN SOD 40 MG/0.4 ML SYRINGE SC SCH (10:52)
[2016-09-27] MEDS: LEVOFLOXACIN 250MG 50 ML IV SCH (10:53)
[2016-09-27] MEDS: FUROSEMIDE 40 MG/4 ML VIAL IV SCH (10:53)
[2016-09-27 13:00] VITALS: BP 105/49
[2016-09-27 15:48] VITALS: BP 105/49
[2016-09-27] MEDS ORDERED: DRON400T PO (17:16)
[2016-09-27] MEDS: VANCOMYCIN 1GM/250ML D5W 250 ML IV SCH (18:26)
[2016-09-27 22:36] VITALS: BP 99/47
[2016-09-28] MEDS: IPRATROPIUM BROM 0.5 MG/2.5ML INH SOL NEB SCH ×6 (02:47→22:48)
[2016-09-28] MEDS: ALBUTEROL SULF 2.5 MG/0.5ML(0.5%) NEB SOLN NEB SCH ×6 (02:47→22:48)
[2016-09-28] MEDS: ACETYLCYSTEINE 10 %(100MG/ML) SOL 4ML NEB SCH ×6 (02:48→22:48)
[2016-09-28] MEDS: METOPROLOL TARTRATE 1MG/1ML-5ML VIAL IV SCH ×3 (05:37→18:00)
[2016-09-28] MEDS: BOOST PLUS 8 ounce PO SCH ×3 (05:38→21:57)
[2016-09-28] MEDS: SODIUM CHLOR 0.9% PF (SALINE LOCK) 10ML VIAL IV SCH ×3 (05:38→21:56)
[2016-09-28 05:53] VITALS: BP 97/51
[2016-09-28 09:00] VITALS: BP 102/54
[2016-09-28] MEDS: DRONEDARONE HCL 400 MG TAB PO SCH ×2 (10:00→21:57)
[2016-09-28] MEDS: FERROUS SULFATE 300 MG/5 ML ORAL LIQ GT SCH ×2 (10:00→21:58)
[2016-09-28] MEDS: ENOXAPARIN SOD 40 MG/0.4 ML SYRINGE SC SCH (11:08)
[2016-09-28] MEDS: FUROSEMIDE 40 MG/4 ML VIAL IV SCH (11:09)
[2016-09-28] MEDS: LEVOFLOXACIN 250MG 50 ML IV SCH (11:17)
[2016-09-28 12:37] VITALS: BP 109/54
[2016-09-28 16:52] VITALS: BP 93/48
[2016-09-28] MEDS: VANCOMYCIN 1GM/250ML D5W 250 ML IV SCH (18:37)
[2016-09-28 22:00] VITALS: BP 105/51
[2016-09-29] MEDS: ACETYLCYSTEINE 10 %(100MG/ML) SOL 4ML NEB SCH ×6 (02:34→22:10)
[2016-09-29] MEDS: ALBUTEROL SULF 2.5 MG/0.5ML(0.5%) NEB SOLN NEB SCH ×6 (02:35→22:09)
[2016-09-29] MEDS: IPRATROPIUM BROM 0.5 MG/2.5ML INH SOL NEB SCH ×6 (02:35→22:09)
[2016-09-29 05:00] VITALS: BP 109/63
[2016-09-29] MEDS: ALPRAZolam 0.25 MG TAB PO PRN ×2 (05:25→21:42)
[2016-09-29] MEDS: BOOST PLUS 8 ounce PO SCH ×3 (05:26→21:23)
[2016-09-29] MEDS: SODIUM CHLOR 0.9% PF (SALINE LOCK) 10ML VIAL IV SCH ×3 (05:26→21:23)
[2016-09-29] MEDS: METOPROLOL TARTRATE 1MG/1ML-5ML VIAL IV SCH ×4 (05:27→18:00)
[2016-09-29 09:00] VITALS: BP 108/55
[2016-09-29] MEDS: FERROUS SULFATE 300 MG/5 ML ORAL LIQ GT SCH ×2 (10:00→21:26)
[2016-09-29] MEDS: DRONEDARONE HCL 400 MG TAB PO SCH ×2 (11:07→21:39)
[2016-09-29] MEDS: LEVOFLOXACIN 250MG 50 ML IV SCH (11:07)
[2016-09-29] MEDS: ENOXAPARIN SOD 40 MG/0.4 ML SYRINGE SC SCH (11:08)
[2016-09-29] MEDS: FUROSEMIDE 40 MG/4 ML VIAL IV SCH (11:08)
[2016-09-29 12:40] VITALS: BP 109/53
[2016-09-29] MEDS: VANCOMYCIN 1GM/250ML D5W 250 ML IV SCH (16:45)
[2016-09-29 17:00] VITALS: BP 119/48
[2016-09-29 21:30] VITALS: BP 94/45
[2016-09-30] MEDS: IPRATROPIUM BROM 0.5 MG/2.5ML INH SOL NEB SCH ×6 (02:00→22:37)
[2016-09-30] MEDS: ALBUTEROL SULF 2.5 MG/0.5ML(0.5%) NEB SOLN NEB SCH ×6 (02:00→22:37)
[2016-09-30] MEDS: ACETYLCYSTEINE 10 %(100MG/ML) SOL 4ML NEB SCH ×6 (02:00→22:37)
[2016-09-30 05:00] VITALS: BP 99/48
[2016-09-30 05:59] LABS: Basophils # (auto) 0 uL; Basophils % (auto) 0.2 % (0.0-2.0); CONDITION Y; DEFINITIVE SEE PRINTOUT; Eosinophils # (auto) 0.1 uL; Eosinophils % (auto) 0.9 % (0.0-7.0); Hematocrit 29.6 % (36.0-46.0); Hemoglobin 9.4 g/dL (12.2-16.2); Lymphocytes # (auto) 0.5 uL; Lymphocytes % (auto) 5.5 % (10.0-50.0); Mean Corpuscular Hemoglobin 29.4 pg (28.0-32.0); Mean Corpuscular Hgb Conc. 31.8 g/dL (32.0-36.0); Mean Corpuscular Volume 92.2 fL (80.0-100.0); Mean Platelet Volume 9.3 fL (7.4-10.4); Monocytes % (auto) 11.9 % (0.0-12.0); Neutrophils # (auto) 7.2 uL; Neutrophils % (auto) 81.5 % (37.0-80.0); Platelet Count (auto) 192 10^3/uL (140-450); White Blood Cell 8.8 10^3/uL (4.4-10.8)
[2016-09-30] MEDS: METOPROLOL TARTRATE 1MG/1ML-5ML VIAL IV SCH ×4 (06:00→18:00)
[2016-09-30 06:10] LABS: BUN/Creatinine Ratio 35.5; Calcium 7.3 mg/dL (8.5-10.1); Potassium 3.5 mmol/L (3.5-5.1)
[2016-09-30] MEDS: SODIUM CHLOR 0.9% PF (SALINE LOCK) 10ML VIAL IV SCH ×3 (06:11→21:37)
[2016-09-30] MEDS: BOOST PLUS 8 ounce PO SCH ×3 (06:11→21:38)
[2016-09-30 08:34] LABS: Anisocytosis Moderate; Burr Cells FEW; Ovalocytes FEW; Platelet Estimate Adequate
[2016-09-30] MEDS: ENOXAPARIN SOD 40 MG/0.4 ML SYRINGE SC SCH (09:50)
[2016-09-30] MEDS: FUROSEMIDE 40 MG/4 ML VIAL IV SCH (09:50)
[2016-09-30] MEDS: DRONEDARONE HCL 400 MG TAB PO SCH ×2 (09:50→21:38)
[2016-09-30] MEDS: FERROUS SULFATE 300 MG/5 ML ORAL LIQ GT SCH ×2 (10:12→21:37)
[2016-09-30] MEDS: LEVOFLOXACIN 250MG 50 ML IV SCH (11:41)
[2016-09-30 12:00] VITALS: BP 98/55
[2016-09-30 16:00] VITALS: BP 110/64
[2016-09-30] MEDS: PRO-STAT 64 30ML PO SCH (18:00)
[2016-09-30 20:14] VITALS: BP 110/64
[2016-09-30 21:23] VITALS: BP 107/53
[2016-09-30] MEDS: ASCORBIC ACID 500 MG TAB PO SCH (21:38)
[2016-09-30] MEDS: HYDROcodone-ACET 5/325MG TAB PO PRN (21:39)
[2016-10-01] MEDS: ALBUTEROL SULF 2.5 MG/0.5ML(0.5%) NEB SOLN NEB SCH ×6 (02:15→22:06)
[2016-10-01] MEDS: IPRATROPIUM BROM 0.5 MG/2.5ML INH SOL NEB SCH ×6 (02:15→22:06)
[2016-10-01] MEDS: ACETYLCYSTEINE 10 %(100MG/ML) SOL 4ML NEB SCH ×6 (02:15→22:06)
[2016-10-01] MEDS: BOOST PLUS 8 ounce PO SCH ×3 (05:33→21:33)
[2016-10-01] MEDS: METOPROLOL TARTRATE 1MG/1ML-5ML VIAL IV SCH ×4 (05:33→18:15)
[2016-10-01] MEDS: SODIUM CHLOR 0.9% PF (SALINE LOCK) 10ML VIAL IV SCH ×3 (05:33→21:33)
[2016-10-01 05:43] VITALS: BP 97/51
[2016-10-01 07:30] VITALS: BP 88/50
[2016-10-01] MEDS: PRO-STAT 64 30ML PO SCH ×2 (08:20→18:15)
[2016-10-01] MEDS: MULTIPLE VITAMINS W/ MINERALS TAB PO SCH (10:42)
[2016-10-01] MEDS: ASCORBIC ACID 500 MG TAB PO SCH ×2 (10:42→21:43)
[2016-10-01] MEDS: FERROUS SULFATE 300 MG/5 ML ORAL LIQ GT SCH ×2 (10:42→21:32)
[2016-10-01] MEDS: DRONEDARONE HCL 400 MG TAB PO SCH ×2 (10:42→21:43)
[2016-10-01] MEDS: ENOXAPARIN SOD 40 MG/0.4 ML SYRINGE SC SCH (10:42)
[2016-10-01] MEDS: LEVOFLOXACIN 250MG 50 ML IV SCH (10:43)
[2016-10-01] MEDS: FUROSEMIDE 40 MG/4 ML VIAL IV SCH (10:43)
[2016-10-01] MEDS ORDERED: VANCOMYCIN 750 MG in D5W 5% 250 ML IV ONE (11:00)
[2016-10-01 12:00] VITALS: BP 108/54
[2016-10-01 17:02] VITALS: BP 108/56
[2016-10-02] MEDS: IPRATROPIUM BROM 0.5 MG/2.5ML INH SOL NEB SCH ×6 (02:12→23:12)
[2016-10-02] MEDS: ACETYLCYSTEINE 10 %(100MG/ML) SOL 4ML NEB SCH ×6 (02:12→23:12)
[2016-10-02] MEDS: ALBUTEROL SULF 2.5 MG/0.5ML(0.5%) NEB SOLN NEB SCH ×6 (02:12→23:12)
[2016-10-02 05:00] VITALS: BP 104/54
[2016-10-02] MEDS: METOPROLOL TARTRATE 1MG/1ML-5ML VIAL IV SCH ×4 (05:31→18:01)
[2016-10-02] MEDS: SODIUM CHLOR 0.9% PF (SALINE LOCK) 10ML VIAL IV SCH ×3 (05:32→21:24)
[2016-10-02] MEDS: BOOST PLUS 8 ounce PO SCH ×3 (05:32→21:25)
[2016-10-02 07:04] LABS: Calcium 7.5 mg/dL (8.5-10.1)
[2016-10-02 07:06] LABS: BUN/Creatinine Ratio 33.3
[2016-10-02] MEDS: PRO-STAT 64 30ML PO SCH ×2 (08:00→18:00)
[2016-10-02] MEDS: FERROUS SULFATE 300 MG/5 ML ORAL LIQ GT SCH ×2 (10:00→21:24)
[2016-10-02] MEDS: ASCORBIC ACID 500 MG TAB PO SCH ×2 (10:00→21:25)
[2016-10-02] MEDS: ENOXAPARIN SOD 40 MG/0.4 ML SYRINGE SC SCH (10:10)
[2016-10-02] MEDS: MULTIPLE VITAMINS W/ MINERALS TAB PO SCH (10:10)
[2016-10-02] MEDS: DRONEDARONE HCL 400 MG TAB PO SCH ×2 (10:12→21:25)
[2016-10-02] MEDS: FUROSEMIDE 40 MG/4 ML VIAL IV SCH (10:12)
[2016-10-02 10:16] VITALS: BP 118/54
[2016-10-02] MEDS: LEVOFLOXACIN 250MG 50 ML IV SCH (11:00)
[2016-10-02 15:20] VITALS: BP 107/50
[2016-10-02 17:10] VITALS: BP 107/52
[2016-10-02] MEDS: HYDROcodone-ACET 5/325MG TAB PO PRN (20:11)
[2016-10-02 22:00] VITALS: BP 113/56
[2016-10-03] MEDS: METOPROLOL TARTRATE 1MG/1ML-5ML VIAL IV SCH ×5 (01:01→21:53)
[2016-10-03] MEDS: IPRATROPIUM BROM 0.5 MG/2.5ML INH SOL NEB SCH ×6 (02:00→22:50)
[2016-10-03] MEDS: ALBUTEROL SULF 2.5 MG/0.5ML(0.5%) NEB SOLN NEB SCH ×6 (02:00→22:50)
[2016-10-03] MEDS: ACETYLCYSTEINE 10 %(100MG/ML) SOL 4ML NEB SCH ×6 (02:00→22:50)
[2016-10-03 05:00] VITALS: BP 136/56
[2016-10-03] MEDS: SODIUM CHLOR 0.9% PF (SALINE LOCK) 10ML VIAL IV SCH ×3 (06:07→21:57)
[2016-10-03] MEDS: BOOST PLUS 8 ounce PO SCH ×3 (06:07→21:57)
[2016-10-03 06:39] LABS: Basophils # (auto) 0 uL; Basophils % (auto) 0.3 % (0.0-2.0); CONDITION Y; DEFINITIVE SEE PRINTOUT; Eosinophils # (auto) 0.1 uL; Hematocrit 34.7 % (36.0-46.0); Hemoglobin 11.2 g/dL (12.2-16.2); Lymphocytes # (auto) 0.6 uL; Lymphocytes % (auto) 4.6 % (10.0-50.0); Mean Corpuscular Hemoglobin 29.7 pg (28.0-32.0); Mean Corpuscular Hgb Conc. 32.2 g/dL (32.0-36.0); Mean Corpuscular Volume 92.1 fL (80.0-100.0); Mean Platelet Volume 8.8 fL (7.4-10.4); Monocytes # (auto) 1.2 uL; Monocytes % (auto) 9.7 % (0.0-12.0); Neutrophils # (auto) 10.4 uL; Neutrophils % (auto) 84.4 % (37.0-80.0); Platelet Count (auto) 323 10^3/uL (140-450); White Blood Cell 12.4 10^3/uL (4.4-10.8)
[2016-10-03 06:47] LABS: Red Cell Distribution Width 23.8 % (11.6-16.0)
[2016-10-03 07:28] LABS: Platelet Estimate Adequate
[2016-10-03 07:29] LABS: Anisocytosis Slight; Burr Cells FEW; Ovalocytes FEW
[2016-10-03] MEDS: PRO-STAT 64 30ML PO SCH ×2 (08:00→17:44)
[2016-10-03 09:00] VITALS: BP 109/55
[2016-10-03] MEDS: FERROUS SULFATE 300 MG/5 ML ORAL LIQ GT SCH ×2 (10:00→21:56)
[2016-10-03] MEDS: MULTIPLE VITAMINS W/ MINERALS TAB PO SCH (11:21)
[2016-10-03] MEDS: LEVOFLOXACIN 250MG 50 ML IV SCH (11:21)
[2016-10-03] MEDS: ASCORBIC ACID 500 MG TAB PO SCH ×2 (11:21→21:57)
[2016-10-03] MEDS: FUROSEMIDE 40 MG/4 ML VIAL IV SCH (11:23)
[2016-10-03 13:00] VITALS: BP 117/64
[2016-10-03] MEDS ORDERED: VANCOMYCIN 1GM/250ML D5W 250 ML IV ONE (16:45)
[2016-10-03 17:00] VITALS: BP 119/62
[2016-10-03 22:00] VITALS: BP 101/49
[2016-10-03 23:14] VITALS: BP 101/49
[2016-10-04] MEDS: ALBUTEROL SULF 2.5 MG/0.5ML(0.5%) NEB SOLN NEB SCH ×6 (02:31→21:50)
[2016-10-04] MEDS: ACETYLCYSTEINE 10 %(100MG/ML) SOL 4ML NEB SCH ×6 (02:31→21:50)
[2016-10-04] MEDS: IPRATROPIUM BROM 0.5 MG/2.5ML INH SOL NEB SCH ×6 (02:31→21:50)
[2016-10-04 05:00] VITALS: BP 100/54
[2016-10-04] MEDS: METOPROLOL TARTRATE 1MG/1ML-5ML VIAL IV SCH ×4 (06:00→18:00)
[2016-10-04] MEDS: BOOST PLUS 8 ounce PO SCH ×3 (06:16→22:33)
[2016-10-04] MEDS: SODIUM CHLOR 0.9% PF (SALINE LOCK) 10ML VIAL IV SCH ×3 (06:16→22:32)
[2016-10-04 08:00] VITALS: BP 109/63
[2016-10-04] MEDS: PRO-STAT 64 30ML PO SCH ×2 (08:00→18:13)
[2016-10-04] MEDS: ASCORBIC ACID 500 MG TAB PO SCH ×2 (10:19→22:30)
[2016-10-04] MEDS: FERROUS SULFATE 300 MG/5 ML ORAL LIQ GT SCH ×2 (10:19→10:34)
[2016-10-04] MEDS: MULTIPLE VITAMINS W/ MINERALS TAB PO SCH (10:19)
[2016-10-04] MEDS: FUROSEMIDE 40 MG/4 ML VIAL IV SCH (10:19)
[2016-10-04] MEDS: LEVOFLOXACIN 250MG 50 ML IV SCH (11:31)
[2016-10-04 12:30] VITALS: BP 112/50
[2016-10-04 17:30] VITALS: BP 110/54
[2016-10-04 22:00] VITALS: BP 109/51
[2016-10-04 22:35] VITALS: BP 78/42
[2016-10-05] MEDS: IPRATROPIUM BROM 0.5 MG/2.5ML INH SOL NEB SCH ×6 (02:27→22:00)
[2016-10-05] MEDS: ALBUTEROL SULF 2.5 MG/0.5ML(0.5%) NEB SOLN NEB SCH ×6 (02:27→22:00)
[2016-10-05] MEDS: ACETYLCYSTEINE 10 %(100MG/ML) SOL 4ML NEB SCH ×6 (02:28→22:00)
[2016-10-05] MEDS: METOPROLOL TARTRATE 1MG/1ML-5ML VIAL IV SCH ×4 (06:00→17:39)
[2016-10-05 06:13] VITALS: BP 114/53
[2016-10-05] MEDS: BOOST PLUS 8 ounce PO SCH ×3 (06:43→22:00)
[2016-10-05] MEDS: SODIUM CHLOR 0.9% PF (SALINE LOCK) 10ML VIAL IV SCH ×3 (06:44→22:00)
[2016-10-05] MEDS: PRO-STAT 64 30ML PO SCH ×2 (08:00→18:00)
[2016-10-05 08:38] VITALS: BP 118/51
[2016-10-05] MEDS: FERROUS SULFATE 300 MG/5 ML ORAL LIQ GT SCH ×2 (10:00→22:00)
[2016-10-05] MEDS: MULTIPLE VITAMINS W/ MINERALS TAB PO SCH (10:45)
[2016-10-05] MEDS: FUROSEMIDE 40 MG/4 ML VIAL IV SCH (10:45)
[2016-10-05] MEDS: ASCORBIC ACID 500 MG TAB PO SCH ×2 (10:45→22:00)
[2016-10-05] MEDS: LEVOFLOXACIN 250MG 50 ML IV SCH (11:30)
[2016-10-05 13:00] VITALS: BP 126/62
[2016-10-05 17:00] VITALS: BP 112/55
[2016-10-05] MEDS: HYDROcodone-ACET 5/325MG TAB PO PRN (19:27)
[2016-10-05] MEDS ORDERED: FUROSEMIDE 40 MG/4 ML VIAL IV ONE (19:45)
[2016-10-05] MEDS: ALPRAZolam 0.25 MG TAB PO PRN (19:56)
[2016-10-05 22:00] VITALS: BP 106/50
[2016-10-05] MEDS ORDERED: SUCCINYLCHOLINE CHLORIDE 20 MG/ML 10ML VIAL IV ONE ×2 (22:05→22:30)
[2016-10-05] MEDS ORDERED: ETOMIDATE (2MG/ML) 20ML VIAL IV ONE ×2 (22:06→22:30)
[2016-10-05] MEDS: MIDAZOLAM DRIP 50 mg/50mL 50 ML IV SCH (22:27)
[2016-10-05 22:30] VITALS: BP 78/42
[2016-10-05] MEDS ORDERED: MIDAZOLAM DRIP 50 mg/50mL 50 ML IV ONE (22:30)
[2016-10-05] MEDS ORDERED: PHENYLEPHRINE IV 250 ML IV ONE (23:45)
[2016-10-05] MEDS ORDERED: AMIODARONE HCL (50 MG/ ML) 3 ML VIAL IV ONE (23:45)
[2016-10-05] MEDS ORDERED: AMIODARONE HCL 900 MG IV ONE (23:53)
[2016-10-06] VITALS (101 sets, daily range): BP systolic 71–158; BP diastolic 28–95
[2016-10-06] MEDS ORDERED: AMIODARONE HCL 150 MG in D5W 5% 100 ML IV ONE (00:30)
[2016-10-06] MEDS ORDERED: ATROPINE SULF 0.5 MG/5ML SYR ONE (00:36)
[2016-10-06] MEDS ORDERED: AMIODARONE HCL 900 MG in DEXTROSE 500 ML IV SCH (00:39)
[2016-10-06 01:05] LABS: Allen Test Modified; Base Excess 12.2 mmol/L (-2.0-2.0); Blood 02Sat 99.3 % (96-100); Blood COHb 1.5 % (0.5-1.5); Blood MetHb 0.3 % (0.0-1.5); HCO3 37.6 mmol/L (22-26.0); HHb 0.7 % (0.0-5.0); MODE VENT - A/C; O2Hb 97.5 % (94.0-97.0); PCO2 52.3 mmHg (35.0-45.0); PCO2(T) 52.3 mmHg (35.0-45.0); PO2 281.4 mmHg (80.0-100.0); PO2(T) 281.4 mmHg (80.0-100.0); Sample Type Arterial; pH 7.475 (7.350-7.450)
[2016-10-06] MEDS: ACETYLCYSTEINE 10 %(100MG/ML) SOL 4ML NEB SCH ×5 (02:00→22:24)
[2016-10-06] MEDS: IPRATROPIUM BROM 0.5 MG/2.5ML INH SOL NEB SCH ×5 (02:00→22:24)
[2016-10-06] MEDS: ALBUTEROL SULF 2.5 MG/0.5ML(0.5%) NEB SOLN NEB SCH ×6 (02:00→22:24)
[2016-10-06 03:59] LABS: Allen Test Modified; Blood 02Sat 93.6 % (96-100); Blood COHb 1.3 % (0.5-1.5); Blood MetHb 0.1 % (0.0-1.5); HCO3 34.7 mmol/L (22-26.0); HHb 6.3 % (0.0-5.0); MODE VENT - A/C; O2Hb 92.3 % (94.0-97.0); PCO2 37.4 mmHg (35.0-45.0); PCO2(T) 37.4 mmHg (35.0-45.0); PO2 62.8 mmHg (80.0-100.0); PO2(T) 62.8 mmHg (80.0-100.0); Sample Type Arterial; pH 7.585 (7.350-7.450)
[2016-10-06] MEDS ORDERED: PHENYLEPHRINE IV 250 ML IV ONE ×4 (04:45→17:40)
[2016-10-06] MEDS: METOPROLOL TARTRATE 1MG/1ML-5ML VIAL IV SCH ×4 (05:00→18:00)
[2016-10-06] MEDS: BOOST PLUS 8 ounce PO SCH ×2 (05:02→14:00)
[2016-10-06] MEDS: PHENYLEPHRINE INJ 20 MG in SODIUM CHL 0.9% 250 ML IV SCH ×3 (05:03)
[2016-10-06] MEDS: MIDAZOLAM DRIP 50 mg/50mL 50 ML IV SCH (05:04)
[2016-10-06] MEDS: PRO-STAT 64 30ML PO SCH ×2 (08:00→18:00)
[2016-10-06] MEDS: SODIUM CHLOR 0.9% PF (SALINE LOCK) 10ML VIAL IV SCH ×3 (08:00→21:22)
[2016-10-06 08:57] LABS: INR 1.35 (0.9-1.15)
[2016-10-06 09:04] LABS: Prothrombin Time 14.8 sec (9.37-12.3)
[2016-10-06 09:05] LABS: Allen Test Modified; Base Excess 14.4 mmol/L (-2.0-2.0); Blood 02Sat 93.3 % (96-100); Blood COHb 2.1 % (0.5-1.5); Blood MetHb 0.2 % (0.0-1.5); HCO3 38.6 mmol/L (22-26.0); HHb 6.5 % (0.0-5.0); MODE VENT - A/C; O2Hb 91.2 % (94.0-97.0); PCO2 45.7 mmHg (35.0-45.0); PCO2(T) 45.7 mmHg (35.0-45.0); PIP 21; PO2 65.2 mmHg (80.0-100.0); PO2(T) 65.2 mmHg (80.0-100.0); Sample Type Arterial; pH 7.544 (7.350-7.450)
[2016-10-06 10:22] LABS: CONDITION Y; DEFINITIVE SEE PRINTOUT; Hematocrit 38.2 % (36.0-46.0); Hemoglobin 12.1 g/dL (12.2-16.2); Mean Corpuscular Hemoglobin 29.3 pg (28.0-32.0); Mean Corpuscular Hgb Conc. 31.8 g/dL (32.0-36.0); Mean Corpuscular Volume 92.2 fL (80.0-100.0); Mean Platelet Volume 8.6 fL (7.4-10.4); Platelet Count (auto) 347 10^3/uL (140-450); White Blood Cell 19.3 10^3/uL (4.4-10.8)
[2016-10-06 10:27] LABS: Red Cell Distribution Width 24.3 % (11.6-16.0)
[2016-10-06 10:28] LABS: Metamyelocytes % 0; Myelocytes % 0; Promyelocytes % 0; Reactive Lymphocytes 0
[2016-10-06 10:51] LABS: Albumin 1.7 g/dL (3.4-5.0); BUN/Creatinine Ratio 31.7; Bilirubin, Total 2.3 mg/dL (0.2-1.0); Calcium 7.7 mg/dL (8.5-10.1); Potassium 4.3 mmol/L (3.5-5.1); Total Protein 4.8 g/dL (6.4-8.2)
[2016-10-06] MEDS: LEVOFLOXACIN 250MG 50 ML IV SCH (11:00)
[2016-10-06] MEDS: ASCORBIC ACID 500 MG TAB PO SCH ×2 (11:11→21:20)
[2016-10-06] MEDS: FERROUS SULFATE 300 MG/5 ML ORAL LIQ GT SCH ×2 (11:11→21:20)
[2016-10-06] MEDS: MULTIPLE VITAMINS W/ MINERALS TAB PO SCH (11:11)
[2016-10-06] MEDS: FUROSEMIDE 40 MG/4 ML VIAL IV SCH (11:12)
[2016-10-06 12:05] LABS: Platelet Estimate Adequate
[2016-10-06 12:20] LABS: Anisocytosis Moderate; Burr Cells FEW; Ovalocytes FEW; Polychromasia Slight; Stomatocytes Few
[2016-10-06] MEDS: PHENYLEPHRINE INJ 40 MG in SODIUM CHL 0.9% 250 ML IV SCH (16:25)
[2016-10-06] MEDS: AMIODARONE HCL 900 MG in DEXTROSE 500 ML IV SCH (20:00)
[2016-10-06] MEDS ORDERED: LINEZOLID 600MG/300ML 300 ML IV SCH (20:00)
[2016-10-06] MEDS: NOREPINEPHRINE BITARTRATE 250 ML IV SCH (20:05)
[2016-10-06] MEDS: methylPREDNISolone SOD SUCC 125 MG/2 ML VL IV SCH (21:19)
[2016-10-06] MEDS: ACETAMINOPHEN 325 MG TAB PO PRN (21:21)
[2016-10-06] MEDS ORDERED: MEROPENEM 500MG IVPB 100 ML IV SCH (22:00)
[2016-10-07] VITALS (98 sets, daily range): BP systolic 94–144; BP diastolic 47–80
[2016-10-07] MEDS: ALBUTEROL SULF 2.5 MG/0.5ML(0.5%) NEB SOLN NEB SCH ×6 (02:30→22:19)
[2016-10-07] MEDS: IPRATROPIUM BROM 0.5 MG/2.5ML INH SOL NEB SCH ×6 (02:30→22:19)
[2016-10-07] MEDS: ACETYLCYSTEINE 10 %(100MG/ML) SOL 4ML NEB SCH ×6 (02:31→22:19)
[2016-10-07 04:10] LABS: CONDITION Y; DEFINITIVE SEE PRINTOUT; Hematocrit 43.3 % (36.0-46.0); Hemoglobin 13.5 g/dL (12.2-16.2); Mean Corpuscular Hemoglobin 28.7 pg (28.0-32.0); Mean Corpuscular Hgb Conc. 31.1 g/dL (32.0-36.0); Mean Corpuscular Volume 92.3 fL (80.0-100.0); Mean Platelet Volume 9.1 fL (7.4-10.4); Platelet Count (auto) 359 10^3/uL (140-450); SUSPECT SEE PRINTOUT; White Blood Cell 22.4 10^3/uL (4.4-10.8)
[2016-10-07 04:11] LABS: Albumin 1.7 g/dL (3.4-5.0); BUN/Creatinine Ratio 27.2; Calcium 7.3 mg/dL (8.5-10.1); Magnesium 2.1 mg/dL (1.6-2.6); Potassium 4.1 mmol/L (3.5-5.1)
[2016-10-07 04:14] LABS: Bilirubin, Total 2.1 mg/dL (0.2-1.0); Total Protein 5.2 g/dL (6.4-8.2)
[2016-10-07 04:44] LABS: Red Cell Distribution Width 24.7 % (11.6-16.0)
[2016-10-07 04:45] LABS: Promyelocytes % 0; Reactive Lymphocytes 0
[2016-10-07] MEDS: methylPREDNISolone SOD SUCC 125 MG/2 ML VL IV SCH ×3 (05:10→22:00)
[2016-10-07 05:24] LABS: Hypersegmented Neutrophils Present; Metamyelocytes % 1; Myelocytes % 1
[2016-10-07 05:25] LABS: Anisocytosis Moderate; Burr Cells FEW; Ovalocytes FEW; Platelet Estimate Adequate; Schistocytes FEW
[2016-10-07] MEDS: AMIODARONE HCL 900 MG in DEXTROSE 500 ML IV SCH (06:39)
[2016-10-07 08:32] LABS: Allen Test Yes; Base Excess 9.6 mmol/L (-2.0-2.0); Blood 02Sat 93.2 % (96-100); Blood MetHb 0.3 % (0.0-1.5); HCO3 34.8 mmol/L (22-26.0); HHb 6.6 % (0.0-5.0); O2Hb 91.1 % (94.0-97.0); PCO2 49.2 mmHg (35.0-45.0); PCO2(T) 49.2 mmHg (35.0-45.0); PO2 69.9 mmHg (80.0-100.0); PO2(T) 69.9 mmHg (80.0-100.0); Pressure Support 0; Sample Type Arterial; pH 7.468 (7.350-7.450)
[2016-10-07 08:44] LABS: MODE VENT - AC
[2016-10-07 08:58] LABS: Hepatitis B Surface Antibody Negative
[2016-10-07] MEDS: PHENYLEPHRINE INJ 40 MG in SODIUM CHL 0.9% 250 ML IV SCH (09:05)
[2016-10-07] MEDS: FERROUS SULFATE 300 MG/5 ML ORAL LIQ GT SCH ×2 (10:24→22:00)
[2016-10-07] MEDS: FUROSEMIDE 40 MG/4 ML VIAL IV SCH (10:25)
[2016-10-07] MEDS: MEROPENEM 1GM IVPB 100 ML IV SCH (10:25)
[2016-10-07] MEDS: PRO-STAT 64 30ML PO SCH ×2 (10:26→18:11)
[2016-10-07] MEDS: ASCORBIC ACID 500 MG TAB PO SCH ×2 (10:26→22:00)
[2016-10-07] MEDS: LINEZOLID 600MG/300ML 300 ML IV SCH ×2 (11:00→22:35)
[2016-10-07] MEDS: METOPROLOL TARTRATE 1MG/1ML-5ML VIAL IV SCH ×2 (12:00→18:00)
[2016-10-07] MEDS: SODIUM CHLOR 0.9% PF (SALINE LOCK) 10ML VIAL IV SCH ×2 (14:00→22:00)
[2016-10-07] MEDS ORDERED: DIGOXIN (250MCG/ML) 2 ML AMPULE ONE (15:12)
[2016-10-07] MEDS ORDERED: DIGOXIN (250MCG/ML) 2 ML AMPULE IV ONE (15:15)
[2016-10-07] MEDS ORDERED: Fibersource Hn 1 Liter GT SCH (16:00)
[2016-10-07] MEDS: NOREPINEPHRINE BITARTRATE 250 ML IV SCH (16:29)
[2016-10-07] MEDS: MIDAZOLAM DRIP 50 mg/50mL 50 ML IV SCH (16:30)
[2016-10-07] MEDS: ACETAMINOPHEN 325 MG TAB PO PRN (18:11)
[2016-10-07] MEDS: ENOXAPARIN SOD 30 MG/0.3 ML SYRINGE SC SCH (18:33)
[2016-10-08] VITALS (76 sets, daily range): BP systolic 88–129; BP diastolic 42–66
[2016-10-08] MEDS: MEROPENEM 1GM IVPB 100 ML IV SCH ×3 (00:30→21:55)
[2016-10-08] MEDS: NOREPINEPHRINE BITARTRATE 250 ML IV SCH (01:00)
[2016-10-08] MEDS: MIDAZOLAM DRIP 50 mg/50mL 50 ML IV SCH (01:30)
[2016-10-08] MEDS: PHENYLEPHRINE INJ 40 MG in SODIUM CHL 0.9% 250 ML IV SCH ×2 (01:45→18:25)
[2016-10-08] MEDS: ACETYLCYSTEINE 10 %(100MG/ML) SOL 4ML NEB SCH ×6 (02:40→22:39)
[2016-10-08] MEDS: IPRATROPIUM BROM 0.5 MG/2.5ML INH SOL NEB SCH ×6 (02:40→22:39)
[2016-10-08] MEDS: ALBUTEROL SULF 2.5 MG/0.5ML(0.5%) NEB SOLN NEB SCH ×6 (02:40→22:39)
[2016-10-08] MEDS: AMIODARONE HCL 900 MG in DEXTROSE 500 ML IV SCH ×2 (03:43→06:39)
[2016-10-08] MEDS: methylPREDNISolone SOD SUCC 125 MG/2 ML VL IV SCH ×3 (06:00→21:55)
[2016-10-08] MEDS: SODIUM CHLOR 0.9% PF (SALINE LOCK) 10ML VIAL IV SCH ×3 (06:20→21:55)
[2016-10-08 08:01] LABS: BUN/Creatinine Ratio 30.9; Calcium 7.6 mg/dL (8.5-10.1); Magnesium 2.5 mg/dL (1.6-2.6); Potassium 4.2 mmol/L (3.5-5.1)
[2016-10-08] MEDS: PRO-STAT 64 30ML PO SCH ×2 (08:30→18:00)
[2016-10-08 08:45] LABS: Allen Test Yes; Base Excess 8.1 mmol/L (-2.0-2.0); Blood 02Sat 93.6 % (96-100); Blood COHb 1.5 % (0.5-1.5); Blood MetHb 0.3 % (0.0-1.5); HCO3 32.6 mmol/L (22-26.0); HHb 6.3 % (0.0-5.0); MODE VENT - A/C; O2Hb 91.9 % (94.0-97.0); PCO2 44.9 mmHg (35.0-45.0); PCO2(T) 43.9 mmHg (35.0-45.0); PO2 69.1 mmHg (80.0-100.0); PO2(T) 66.8 mmHg (80.0-100.0); Sample Type Arterial; pH 7.479 (7.350-7.450)
[2016-10-08 09:12] LABS: CONDITION Y; DEFINITIVE SEE PRINTOUT; Hematocrit 38.5 % (36.0-46.0); Hemoglobin 12.1 g/dL (12.2-16.2); Mean Corpuscular Hemoglobin 29.3 pg (28.0-32.0); Mean Corpuscular Hgb Conc. 31.6 g/dL (32.0-36.0); Mean Corpuscular Volume 92.7 fL (80.0-100.0); Mean Platelet Volume 9.1 fL (7.4-10.4); Platelet Count (auto) 283 10^3/uL (140-450); SUSPECT SEE PRINTOUT; White Blood Cell 22.9 10^3/uL (4.4-10.8)
[2016-10-08] MEDS: LINEZOLID 600MG/300ML 300 ML IV SCH ×2 (09:35→20:48)
[2016-10-08 09:37] LABS: Metamyelocytes % 0; Myelocytes % 0; Promyelocytes % 0; Reactive Lymphocytes 0; Red Cell Distribution Width 25.5 % (11.6-16.0)
[2016-10-08] MEDS: FERROUS SULFATE 300 MG/5 ML ORAL LIQ GT SCH ×2 (10:07→21:55)
[2016-10-08] MEDS: ENOXAPARIN SOD 30 MG/0.3 ML SYRINGE SC SCH (10:07)
[2016-10-08] MEDS: MULTIPLE VITAMINS W/ MINERALS TAB PO SCH (10:07)
[2016-10-08] MEDS: ASCORBIC ACID 500 MG TAB PO SCH ×2 (10:07→21:56)
[2016-10-08] MEDS: FUROSEMIDE 40 MG/4 ML VIAL IV SCH (10:08)
[2016-10-08 10:16] LABS: Platelet Estimate Adequate
[2016-10-08 10:17] LABS: Anisocytosis Moderate; Burr Cells FEW; Ovalocytes FEW
[2016-10-08 10:23] LABS: Schistocytes FEW
[2016-10-08] MEDS: METOPROLOL TARTRATE 1MG/1ML-5ML VIAL IV SCH ×2 (12:00)
[2016-10-08] MEDS: AMIODARONE HCL 200 MG TAB PO SCH (21:56)
[2016-10-08] MEDS ORDERED: AMIODARONE HCL 200 MG TAB PO SCH (22:00)
[2016-10-09] VITALS (103 sets, daily range): BP systolic 87–138; BP diastolic 33–95
[2016-10-09] MEDS: ALBUTEROL SULF 2.5 MG/0.5ML(0.5%) NEB SOLN NEB SCH ×6 (02:42→22:09)
[2016-10-09] MEDS: IPRATROPIUM BROM 0.5 MG/2.5ML INH SOL NEB SCH ×6 (02:43→22:09)
[2016-10-09] MEDS: ACETYLCYSTEINE 10 %(100MG/ML) SOL 4ML NEB SCH ×6 (02:43→22:09)
[2016-10-09 04:00] LABS: Basophils # (auto) 0 uL; CONDITION Y; DEFINITIVE SEE PRINTOUT; Eosinophils # (auto) 0 uL; Eosinophils % (auto) 0.1 % (0.0-7.0); Hemoglobin 12.1 g/dL (12.2-16.2); Lymphocytes # (auto) 0.8 uL; Mean Corpuscular Hemoglobin 28.9 pg (28.0-32.0); Mean Corpuscular Hgb Conc. 31.2 g/dL (32.0-36.0); Mean Corpuscular Volume 92.7 fL (80.0-100.0); Mean Platelet Volume 9.1 fL (7.4-10.4); Monocytes # (auto) 0.7 uL; Monocytes % (auto) 3.4 % (0.0-12.0); Neutrophils # (auto) 18.5 uL; Neutrophils % (auto) 92.5 % (37.0-80.0); Platelet Count (auto) 271 10^3/uL (140-450)
[2016-10-09 04:05] LABS: Red Cell Distribution Width 24.9 % (11.6-16.0)
[2016-10-09 04:09] LABS: Calcium 7.7 mg/dL (8.5-10.1); Magnesium 2.6 mg/dL (1.6-2.6); Potassium 3.9 mmol/L (3.5-5.1)
[2016-10-09 04:46] LABS: Anisocytosis Moderate; Burr Cells MODERATE; Platelet Estimate Adequate; Schistocytes FEW; Stomatocytes Few
[2016-10-09] MEDS ORDERED: DIGOXIN (250MCG/ML) 2 ML AMPULE IV ONE (06:00)
[2016-10-09] MEDS: SODIUM CHLOR 0.9% PF (SALINE LOCK) 10ML VIAL IV SCH ×3 (06:11→21:32)
[2016-10-09] MEDS: methylPREDNISolone SOD SUCC 125 MG/2 ML VL IV SCH ×3 (06:12→21:32)
[2016-10-09] MEDS: PRO-STAT 64 30ML PO SCH ×2 (08:00→18:17)
[2016-10-09] MEDS: LINEZOLID 600MG/300ML 300 ML IV SCH ×2 (08:00→19:28)
[2016-10-09] MEDS: MULTIPLE VITAMINS W/ MINERALS TAB PO SCH (10:00)
[2016-10-09] MEDS: ENOXAPARIN SOD 30 MG/0.3 ML SYRINGE SC SCH (10:00)
[2016-10-09] MEDS: ASCORBIC ACID 500 MG TAB PO SCH ×2 (11:00→21:32)
[2016-10-09] MEDS: AMIODARONE HCL 200 MG TAB PO SCH ×2 (11:00→21:32)
[2016-10-09] MEDS: FUROSEMIDE 40 MG/4 ML VIAL IV SCH (11:01)
[2016-10-09] MEDS: FERROUS SULFATE 300 MG/5 ML ORAL LIQ GT SCH ×2 (11:01→21:32)
[2016-10-09] MEDS: MEROPENEM 1GM IVPB 100 ML IV SCH ×2 (11:01→21:32)
[2016-10-09] MEDS: PHENYLEPHRINE INJ 40 MG in SODIUM CHL 0.9% 250 ML IV SCH (11:05)
[2016-10-09] MEDS ORDERED: LIDOCAINE 1% HCL (LOCAL ANESTH.) INJ 20ML MDV ONE (14:26)
[2016-10-09] MEDS ORDERED: MIDAZOLAM HCL 1MG/1ML-2 ML VIAL ONE ×3 (15:07→15:19)
[2016-10-09 19:10] LABS: Urine Bilirubin Negative (Negative); Urine Blood TRACE /uL (Negative); Urine Ca Oxalate Crystal MANY (None Seen); Urine Color Yellow (Yellow); Urine Glucose Normal (Normal); Urine Ketone Negative (Negative); Urine Mucus FEW (None Seen); Urine Nitrite Negative (Negative); Urine RBC 12 /hpf (0 - 4); Urine Urobilinogen Normal (Negative); Urine WBC Clumps PRESENT /hpf (None Seen); Urine pH 5.5 (5.0-8.0)
[2016-10-09] MEDS: NOREPINEPHRINE BITARTRATE 250 ML IV SCH (19:30)
[2016-10-09] MEDS: MIDAZOLAM DRIP 50 mg/50mL 50 ML IV SCH (22:27)
[2016-10-10] VITALS (71 sets, daily range): BP systolic 99–132; BP diastolic 34–74
[2016-10-10] MEDS: IPRATROPIUM BROM 0.5 MG/2.5ML INH SOL NEB SCH ×6 (02:12→21:51)
[2016-10-10] MEDS: ALBUTEROL SULF 2.5 MG/0.5ML(0.5%) NEB SOLN NEB SCH ×6 (02:12→21:51)
[2016-10-10] MEDS: ACETYLCYSTEINE 10 %(100MG/ML) SOL 4ML NEB SCH ×6 (02:12→21:51)
[2016-10-10] MEDS: PHENYLEPHRINE INJ 40 MG in SODIUM CHL 0.9% 250 ML IV SCH ×2 (03:45→20:25)
[2016-10-10 04:12] LABS: Basophils # (auto) 0 uL; Basophils % (auto) 0.1 % (0.0-2.0); CONDITION Y; DEFINITIVE SEE PRINTOUT; Eosinophils # (auto) 0 uL; Hematocrit 35.2 % (36.0-46.0); Hemoglobin 11.2 g/dL (12.2-16.2); Lymphocytes # (auto) 0.5 uL; Lymphocytes % (auto) 4.3 % (10.0-50.0); Mean Corpuscular Hemoglobin 29.2 pg (28.0-32.0); Mean Corpuscular Hgb Conc. 31.8 g/dL (32.0-36.0); Mean Corpuscular Volume 91.8 fL (80.0-100.0); Mean Platelet Volume 8.7 fL (7.4-10.4); Monocytes # (auto) 0.4 uL; Monocytes % (auto) 3.5 % (0.0-12.0); Neutrophils # (auto) 11.1 uL; Neutrophils % (auto) 92.1 % (37.0-80.0); Platelet Count (auto) 225 10^3/uL (140-450); White Blood Cell 12.1 10^3/uL (4.4-10.8)
[2016-10-10 04:18] LABS: Red Cell Distribution Width 24.7 % (11.6-16.0)
[2016-10-10 04:20] LABS: BUN/Creatinine Ratio 39.6; Calcium 7.5 mg/dL (8.5-10.1); Potassium 3.9 mmol/L (3.5-5.1)
[2016-10-10 04:58] LABS: Anisocytosis Moderate; Burr Cells FEW; Ovalocytes FEW; Platelet Estimate Adequate; Polychromasia Slight
[2016-10-10 04:59] LABS: Schistocytes FEW
[2016-10-10] MEDS: methylPREDNISolone SOD SUCC 125 MG/2 ML VL IV SCH ×3 (05:33→23:13)
[2016-10-10] MEDS: SODIUM CHLOR 0.9% PF (SALINE LOCK) 10ML VIAL IV SCH (05:33)
[2016-10-10] MEDS: LINEZOLID 600MG/300ML 300 ML IV SCH ×2 (07:49→20:06)
[2016-10-10] MEDS: PRO-STAT 64 30ML PO SCH ×2 (08:00→18:00)
[2016-10-10] MEDS: MEROPENEM 1GM IVPB 100 ML IV SCH ×2 (10:03→22:00)
[2016-10-10] MEDS: ENOXAPARIN SOD 30 MG/0.3 ML SYRINGE SC SCH (10:03)
[2016-10-10] MEDS: AMIODARONE HCL 200 MG TAB PO SCH ×2 (10:03→23:13)
[2016-10-10] MEDS: FUROSEMIDE 40 MG/4 ML VIAL IV SCH (10:03)
[2016-10-10] MEDS: MULTIPLE VITAMINS W/ MINERALS TAB PO SCH (10:03)
[2016-10-10] MEDS: ASCORBIC ACID 500 MG TAB PO SCH ×2 (10:03→23:14)
[2016-10-10 10:20] LABS: Allen Test Modified; Base Excess 5.8 mmol/L (-2.0-2.0); Blood 02Sat 94.4 % (96-100); Blood COHb 0.9 % (0.5-1.5); Blood MetHb 0.2 % (0.0-1.5); HCO3 30.2 mmol/L (22-26.0); HHb 5.5 % (0.0-5.0); MODE VENT - CPAP; O2Hb 93.4 % (94.0-97.0); PCO2 43.4 mmHg (35.0-45.0); PCO2(T) 43.4 mmHg (35.0-45.0); PO2 73.6 mmHg (80.0-100.0); PO2(T) 73.6 mmHg (80.0-100.0); Pressure Support 8; Sample Type Arterial; Spont Vt 263; pH 7.461 (7.350-7.450)
[2016-10-10 13:41] LABS: Allen Test Modified; Base Excess 8.6 mmol/L (-2.0-2.0); Blood 02Sat 94.7 % (96-100); Blood COHb 0.9 % (0.5-1.5); Blood MetHb 0.1 % (0.0-1.5); HCO3 33.7 mmol/L (22-26.0); HHb 5.2 % (0.0-5.0); MODE VENT - SIMV; O2Hb 93.8 % (94.0-97.0); PCO2 48.3 mmHg (35.0-45.0); PCO2(T) 48.3 mmHg (35.0-45.0); PO2 74.5 mmHg (80.0-100.0); PO2(T) 74.5 mmHg (80.0-100.0); Pressure Support 8; Sample Type Arterial; Spont Vt 388; pH 7.461 (7.350-7.450)
[2016-10-10] MEDS: NOREPINEPHRINE BITARTRATE 250 ML IV SCH (19:30)
[2016-10-10] MEDS: HYDROcodone-ACET 5/325MG TAB PO PRN (20:07)
[2016-10-10] MEDS: MIDAZOLAM DRIP 50 mg/50mL 50 ML IV SCH (22:27)
[2016-10-11] VITALS (93 sets, daily range): BP systolic 83–145; BP diastolic 29–70
[2016-10-11] MEDS: IPRATROPIUM BROM 0.5 MG/2.5ML INH SOL NEB SCH ×6 (02:57→22:00)
[2016-10-11] MEDS: ACETYLCYSTEINE 10 %(100MG/ML) SOL 4ML NEB SCH ×6 (02:57→22:01)
[2016-10-11] MEDS: ALBUTEROL SULF 2.5 MG/0.5ML(0.5%) NEB SOLN NEB SCH ×6 (02:57→22:00)
[2016-10-11 04:18] LABS: Basophils # (auto) 0 uL; Basophils % (auto) 0.2 % (0.0-2.0); CONDITION Y; DEFINITIVE SEE PRINTOUT; Eosinophils # (auto) 0 uL; Hematocrit 34.1 % (36.0-46.0); Hemoglobin 10.9 g/dL (12.2-16.2); Lymphocytes # (auto) 0.4 uL; Lymphocytes % (auto) 4.5 % (10.0-50.0); Mean Corpuscular Hemoglobin 29.4 pg (28.0-32.0); Mean Corpuscular Volume 91.9 fL (80.0-100.0); Mean Platelet Volume 8.8 fL (7.4-10.4); Monocytes # (auto) 0.2 uL; Monocytes % (auto) 2.6 % (0.0-12.0); Neutrophils % (auto) 92.7 % (37.0-80.0); Platelet Count (auto) 200 10^3/uL (140-450); White Blood Cell 9.7 10^3/uL (4.4-10.8)
[2016-10-11 04:32] LABS: Calcium 7.3 mg/dL (8.5-10.1); Potassium 3.6 mmol/L (3.5-5.1)
[2016-10-11 04:33] LABS: INR 1.22 (0.9-1.15)
[2016-10-11 04:36] LABS: Albumin 1.7 g/dL (3.4-5.0); BUN/Creatinine Ratio 41.7
[2016-10-11 04:49] LABS: Red Cell Distribution Width 24.4 % (11.6-16.0)
[2016-10-11 04:50] LABS: Bilirubin, Total 1.1 mg/dL (0.2-1.0); Total Protein 4.5 g/dL (6.4-8.2)
[2016-10-11 04:51] LABS: Prothrombin Time 13.3 sec (9.37-12.3)
[2016-10-11] MEDS: methylPREDNISolone SOD SUCC 125 MG/2 ML VL IV SCH ×3 (05:31→22:46)
[2016-10-11 06:25] LABS: Allen Test Modified; Base Excess 5.4 mmol/L (-2.0-2.0); Blood 02Sat 94.7 % (96-100); Blood COHb 1.5 % (0.5-1.5); Blood MetHb 0.2 % (0.0-1.5); HCO3 30.3 mmol/L (22-26.0); HHb 5.2 % (0.0-5.0); MODE VENT - SIMV; O2Hb 93.1 % (94.0-97.0); PCO2 45.5 mmHg (35.0-45.0); PCO2(T) 45.5 mmHg (35.0-45.0); PO2 80.2 mmHg (80.0-100.0); PO2(T) 80.2 mmHg (80.0-100.0); Pressure Support 8; Sample Type Arterial; pH 7.441 (7.350-7.450)
[2016-10-11] MEDS: HYDROcodone-ACET 5/325MG TAB PO PRN (07:10)
[2016-10-11 07:15] LABS: Platelet Estimate Adequate
[2016-10-11 07:16] LABS: Anisocytosis Moderate; Ovalocytes FEW
[2016-10-11] MEDS: LINEZOLID 600MG/300ML 300 ML IV SCH ×2 (07:22→21:25)
[2016-10-11] MEDS: PRO-STAT 64 30ML PO SCH ×2 (08:00→17:21)
[2016-10-11] MEDS: MULTIPLE VITAMINS W/ MINERALS TAB PO SCH (09:48)
[2016-10-11] MEDS: ASCORBIC ACID 500 MG TAB PO SCH ×2 (09:48→21:22)
[2016-10-11] MEDS: MEROPENEM 1GM IVPB 100 ML IV SCH ×2 (09:49→22:45)
[2016-10-11] MEDS: AMIODARONE HCL 200 MG TAB PO SCH (09:49)
[2016-10-11] MEDS: ENOXAPARIN SOD 30 MG/0.3 ML SYRINGE SC SCH (09:49)
[2016-10-11] MEDS: FUROSEMIDE 40 MG/4 ML VIAL IV SCH (09:49)
[2016-10-11] MEDS: PHENYLEPHRINE INJ 40 MG in SODIUM CHL 0.9% 250 ML IV SCH (13:05)
[2016-10-11 15:04] LABS: Allen Test Modified; Base Excess 9.8 mmol/L (-2.0-2.0); Blood 02Sat 93.4 % (96-100); Blood COHb 1.5 % (0.5-1.5); Blood MetHb 0.2 % (0.0-1.5); HCO3 34.2 mmol/L (22-26.0); HHb 6.5 % (0.0-5.0); MODE VENT - CPAP; O2Hb 91.8 % (94.0-97.0); PCO2 44.7 mmHg (35.0-45.0); PCO2(T) 44.7 mmHg (35.0-45.0); PO2 68.9 mmHg (80.0-100.0); PO2(T) 68.9 mmHg (80.0-100.0); Sample Type Arterial; Spont Vt 470; pH 7.501 (7.350-7.450)
[2016-10-11] MEDS: NOREPINEPHRINE BITARTRATE 250 ML IV SCH (19:30)
[2016-10-11] MEDS: MIDAZOLAM DRIP 50 mg/50mL 50 ML IV SCH (22:27)
[2016-10-11] MEDS: ENOXAPARIN SOD 40 MG/0.4 ML SYRINGE SC SCH (22:46)
[2016-10-12] VITALS (51 sets, daily range): BP systolic 99–132; BP diastolic 34–59
[2016-10-12] MEDS: ALBUTEROL SULF 2.5 MG/0.5ML(0.5%) NEB SOLN NEB SCH ×6 (02:26→22:41)
[2016-10-12] MEDS: ACETYLCYSTEINE 10 %(100MG/ML) SOL 4ML NEB SCH ×6 (02:26→22:42)
[2016-10-12] MEDS: IPRATROPIUM BROM 0.5 MG/2.5ML INH SOL NEB SCH ×6 (02:26→22:00)
[2016-10-12] MEDS: ACETAMINOPHEN 325 MG TAB PO PRN (04:19)
[2016-10-12] MEDS: methylPREDNISolone SOD SUCC 125 MG/2 ML VL IV SCH ×3 (06:00→21:43)
[2016-10-12] MEDS: LINEZOLID 600MG/300ML 300 ML IV SCH ×2 (07:30→19:26)
[2016-10-12] MEDS: PRO-STAT 64 30ML PO SCH ×2 (08:26→18:19)
[2016-10-12] MEDS: MEROPENEM 1GM IVPB 100 ML IV SCH ×2 (10:00→21:43)
[2016-10-12] MEDS: ENOXAPARIN SOD 40 MG/0.4 ML SYRINGE SC SCH ×2 (10:46→21:44)
[2016-10-12] MEDS: FUROSEMIDE 40 MG/4 ML VIAL IV SCH (10:46)
[2016-10-12] MEDS: ASCORBIC ACID 500 MG TAB PO SCH ×2 (10:47→21:44)
[2016-10-12] MEDS: MULTIPLE VITAMINS W/ MINERALS TAB PO SCH (10:47)
[2016-10-12] MEDS: NOREPINEPHRINE BITARTRATE 250 ML IV SCH (19:30)
[2016-10-13] VITALS (43 sets, daily range): BP systolic 111–145; BP diastolic 41–74
[2016-10-13] MEDS: ACETAMINOPHEN 325 MG TAB PO PRN (00:15)
[2016-10-13] MEDS: ACETYLCYSTEINE 10 %(100MG/ML) SOL 4ML NEB SCH ×6 (02:43→22:04)
[2016-10-13] MEDS: IPRATROPIUM BROM 0.5 MG/2.5ML INH SOL NEB SCH ×6 (02:43→22:04)
[2016-10-13] MEDS: ALBUTEROL SULF 2.5 MG/0.5ML(0.5%) NEB SOLN NEB SCH ×6 (02:43→22:03)
[2016-10-13 03:36] LABS: Basophils # (auto) 0 uL; CONDITION Y; DEFINITIVE SEE PRINTOUT; Eosinophils # (auto) 0 uL; Hemoglobin 12.7 g/dL (12.2-16.2); Lymphocytes # (auto) 0.4 uL; Lymphocytes % (auto) 2.5 % (10.0-50.0); Mean Corpuscular Hemoglobin 29.5 pg (28.0-32.0); Mean Corpuscular Hgb Conc. 31.8 g/dL (32.0-36.0); Mean Corpuscular Volume 92.8 fL (80.0-100.0); Mean Platelet Volume 8.8 fL (7.4-10.4); Monocytes # (auto) 0.4 uL; Monocytes % (auto) 2.7 % (0.0-12.0); Neutrophils # (auto) 13.3 uL; Neutrophils % (auto) 94.8 % (37.0-80.0); Platelet Count (auto) 192 10^3/uL (140-450); White Blood Cell 14.1 10^3/uL (4.4-10.8)
[2016-10-13 03:48] LABS: Red Cell Distribution Width 23.7 % (11.6-16.0)
[2016-10-13 03:55] LABS: Albumin 1.9 g/dL (3.4-5.0); Potassium 3.3 mmol/L (3.5-5.1)
[2016-10-13 03:57] LABS: BUN/Creatinine Ratio 46.1; Total Protein 4.9 g/dL (6.4-8.2)
[2016-10-13 03:59] LABS: Bilirubin, Total 1.2 mg/dL (0.2-1.0)
[2016-10-13 05:19] LABS: Anisocytosis Moderate; Ovalocytes FEW; Platelet Estimate Adequate
[2016-10-13 05:20] LABS: Hypersegmented Neutrophils Present
[2016-10-13] MEDS: methylPREDNISolone SOD SUCC 125 MG/2 ML VL IV SCH ×2 (05:21→13:37)
[2016-10-13] MEDS: LINEZOLID 600MG/300ML 300 ML IV SCH ×2 (08:18→19:42)
[2016-10-13] MEDS: PRO-STAT 64 30ML PO SCH ×2 (08:18→18:12)
[2016-10-13] MEDS: ENOXAPARIN SOD 40 MG/0.4 ML SYRINGE SC SCH ×2 (09:25→21:33)
[2016-10-13] MEDS: FUROSEMIDE 40 MG/4 ML VIAL IV SCH (09:25)
[2016-10-13] MEDS: MULTIPLE VITAMINS W/ MINERALS TAB PO SCH (09:26)
[2016-10-13] MEDS: MEROPENEM 1GM IVPB 100 ML IV SCH ×2 (09:26→21:32)
[2016-10-13] MEDS: ASCORBIC ACID 500 MG TAB PO SCH ×2 (09:26→21:33)
[2016-10-13] MEDS ORDERED: POTASSIUM CHL 10% (20 MEQ/15ML) ORAL SOLN GT ONE (12:15)
[2016-10-13] MEDS: BOOST PLUS 8 ounce PO SCH ×2 (13:37→18:10)
[2016-10-13] MEDS: NOREPINEPHRINE BITARTRATE 250 ML IV SCH (19:30)
[2016-10-14] VITALS (77 sets, daily range): BP systolic 102–137; BP diastolic 41–73
[2016-10-14] MEDS: ACETYLCYSTEINE 10 %(100MG/ML) SOL 4ML NEB SCH ×6 (02:14→22:47)
[2016-10-14] MEDS: ALBUTEROL SULF 2.5 MG/0.5ML(0.5%) NEB SOLN NEB SCH ×6 (02:14→22:47)
[2016-10-14] MEDS: IPRATROPIUM BROM 0.5 MG/2.5ML INH SOL NEB SCH ×6 (02:14→22:47)
[2016-10-14] MEDS: LINEZOLID 600MG/300ML 300 ML IV SCH ×2 (08:30→20:00)
[2016-10-14] MEDS: BOOST PLUS 8 ounce PO SCH ×3 (09:32→18:47)
[2016-10-14] MEDS: PRO-STAT 64 30ML PO SCH ×2 (09:32→18:47)
[2016-10-14] MEDS: FUROSEMIDE 40 MG/4 ML VIAL IV SCH (10:03)
[2016-10-14] MEDS: ASCORBIC ACID 500 MG TAB PO SCH ×2 (10:04→22:00)
[2016-10-14] MEDS: MULTIPLE VITAMINS W/ MINERALS TAB PO SCH (10:04)
[2016-10-14] MEDS: ENOXAPARIN SOD 40 MG/0.4 ML SYRINGE SC SCH ×2 (10:10→22:00)
[2016-10-14] MEDS: MEROPENEM 1GM IVPB 100 ML IV SCH ×2 (11:00→22:00)
[2016-10-14] MEDS: NOREPINEPHRINE BITARTRATE 250 ML IV SCH (19:45)
[2016-10-15] VITALS (11 sets, daily range): BP systolic 110–126; BP diastolic 52–77
[2016-10-15] MEDS: ALBUTEROL SULF 2.5 MG/0.5ML(0.5%) NEB SOLN NEB SCH ×6 (02:37→22:48)
[2016-10-15] MEDS: IPRATROPIUM BROM 0.5 MG/2.5ML INH SOL NEB SCH ×6 (02:37→22:47)
[2016-10-15] MEDS: ACETYLCYSTEINE 10 %(100MG/ML) SOL 4ML NEB SCH ×5 (02:38→22:48)
[2016-10-15 04:19] LABS: Basophils # (auto) 0 uL; CONDITION Y; DEFINITIVE SEE PRINTOUT; Eosinophils # (auto) 0.5 uL; Eosinophils % (auto) 3.1 % (0.0-7.0); Hematocrit 39.3 % (36.0-46.0); Hemoglobin 12.4 g/dL (12.2-16.2); Lymphocytes # (auto) 1.1 uL; Lymphocytes % (auto) 6.7 % (10.0-50.0); Mean Corpuscular Hemoglobin 29.2 pg (28.0-32.0); Mean Corpuscular Hgb Conc. 31.5 g/dL (32.0-36.0); Mean Platelet Volume 9.2 fL (7.4-10.4); Monocytes # (auto) 0.5 uL; Monocytes % (auto) 3.1 % (0.0-12.0); Neutrophils # (auto) 14.1 uL; Neutrophils % (auto) 87.1 % (37.0-80.0); Platelet Count (auto) 149 10^3/uL (140-450); SUSPECT SEE PRINTOUT; White Blood Cell 16.2 10^3/uL (4.4-10.8)
[2016-10-15 04:31] LABS: Red Cell Distribution Width 23.2 % (11.6-16.0)
[2016-10-15 04:44] LABS: Albumin 1.9 g/dL (3.4-5.0); BUN/Creatinine Ratio 59.2; Calcium 7.3 mg/dL (8.5-10.1); Magnesium 2.2 mg/dL (1.6-2.6); Potassium 3.5 mmol/L (3.5-5.1)
[2016-10-15 04:47] LABS: Bilirubin, Total 1.5 mg/dL (0.2-1.0); Total Protein 4.4 g/dL (6.4-8.2)
[2016-10-15 05:01] LABS: Anisocytosis Moderate; Hypersegmented Neutrophils Present; Ovalocytes FEW; Platelet Estimate Adequate
[2016-10-15] MEDS: PRO-STAT 64 30ML PO SCH ×2 (08:00→18:00)
[2016-10-15] MEDS: LINEZOLID 600MG/300ML 300 ML IV SCH ×2 (08:43→21:54)
[2016-10-15] MEDS: BOOST PLUS 8 ounce PO SCH ×3 (09:12→19:02)
[2016-10-15] MEDS: MEROPENEM 1GM IVPB 100 ML IV SCH ×2 (09:43→22:04)
[2016-10-15] MEDS: ASCORBIC ACID 500 MG TAB PO SCH ×2 (09:43→22:04)
[2016-10-15] MEDS: MULTIPLE VITAMINS W/ MINERALS TAB PO SCH (09:43)
[2016-10-15] MEDS: ENOXAPARIN SOD 40 MG/0.4 ML SYRINGE SC SCH ×2 (09:44→22:04)
[2016-10-15 12:54] LABS: Urine Bilirubin Negative (Negative); Urine Blood TRACE /uL (Negative); Urine Color Yellow (Yellow); Urine Glucose Normal (Normal); Urine Ketone Negative (Negative); Urine Nitrite Negative (Negative); Urine RBC 6 /hpf (0 - 4)
[2016-10-16 01:14] VITALS: BP 113/60
[2016-10-16] MEDS: IPRATROPIUM BROM 0.5 MG/2.5ML INH SOL NEB SCH ×6 (02:45→22:11)
[2016-10-16] MEDS: ACETYLCYSTEINE 10 %(100MG/ML) SOL 4ML NEB SCH ×6 (02:46→22:11)
[2016-10-16] MEDS: ALBUTEROL SULF 2.5 MG/0.5ML(0.5%) NEB SOLN NEB SCH ×6 (02:46→22:11)
[2016-10-16 04:00] VITALS: BP 104/63
[2016-10-16] MEDS: BOOST PLUS 8 ounce PO SCH ×3 (07:44→18:00)
[2016-10-16] MEDS: PRO-STAT 64 30ML PO SCH ×2 (07:44→18:00)
[2016-10-16 07:51] VITALS: BP 114/60
[2016-10-16] MEDS: LINEZOLID 600MG/300ML 300 ML IV SCH ×2 (07:55→20:56)
[2016-10-16] MEDS: ENOXAPARIN SOD 40 MG/0.4 ML SYRINGE SC SCH ×2 (10:00→21:15)
[2016-10-16] MEDS: MULTIPLE VITAMINS W/ MINERALS TAB PO SCH (10:00)
[2016-10-16] MEDS: MEROPENEM 1GM IVPB 100 ML IV SCH ×2 (10:00→21:14)
[2016-10-16] MEDS: ASCORBIC ACID 500 MG TAB PO SCH ×2 (10:01→21:15)
[2016-10-16 11:53] VITALS: BP 107/56
[2016-10-16 16:54] VITALS: BP 114/67
[2016-10-16 19:54] VITALS: BP 117/47
[2016-10-17] VITALS (7 sets, daily range): BP systolic 101–119; BP diastolic 43–62
[2016-10-17] MEDS: IPRATROPIUM BROM 0.5 MG/2.5ML INH SOL NEB SCH ×6 (02:00→22:15)
[2016-10-17] MEDS: ALBUTEROL SULF 2.5 MG/0.5ML(0.5%) NEB SOLN NEB SCH ×6 (02:00→22:15)
[2016-10-17] MEDS: ACETYLCYSTEINE 10 %(100MG/ML) SOL 4ML NEB SCH ×6 (02:00→22:15)
[2016-10-17] MEDS: PRO-STAT 64 30ML PO SCH ×2 (08:29→18:00)
[2016-10-17] MEDS: BOOST PLUS 8 ounce PO SCH ×3 (08:29→18:00)
[2016-10-17] MEDS: LINEZOLID 600MG/300ML 300 ML IV SCH ×2 (08:42→19:24)
[2016-10-17] MEDS: MULTIPLE VITAMINS W/ MINERALS TAB PO SCH (09:30)
[2016-10-17] MEDS: ASCORBIC ACID 500 MG TAB PO SCH ×2 (09:30→21:25)
[2016-10-17] MEDS: ENOXAPARIN SOD 40 MG/0.4 ML SYRINGE SC SCH ×2 (09:30→21:25)
[2016-10-17] MEDS: MEROPENEM 1GM IVPB 100 ML IV SCH ×2 (10:23→21:25)
[2016-10-18] MEDS: IPRATROPIUM BROM 0.5 MG/2.5ML INH SOL NEB SCH ×6 (02:13→22:06)
[2016-10-18] MEDS: ALBUTEROL SULF 2.5 MG/0.5ML(0.5%) NEB SOLN NEB SCH ×6 (02:13→22:06)
[2016-10-18] MEDS: ACETYLCYSTEINE 10 %(100MG/ML) SOL 4ML NEB SCH ×6 (02:13→22:06)
[2016-10-18 04:00] VITALS: BP 101/54
[2016-10-18 05:39] LABS: Basophils # (auto) 0 uL; CONDITION Y; DEFINITIVE SEE PRINTOUT; Eosinophils # (auto) 0.9 uL; Eosinophils % (auto) 4.8 % (0.0-7.0); Hematocrit 36.3 % (36.0-46.0); Hemoglobin 11.4 g/dL (12.2-16.2); Lymphocytes # (auto) 1.5 uL; Lymphocytes % (auto) 8.3 % (10.0-50.0); Mean Corpuscular Hemoglobin 29.2 pg (28.0-32.0); Mean Corpuscular Hgb Conc. 31.4 g/dL (32.0-36.0); Mean Platelet Volume 10.4 fL (7.4-10.4); Monocytes # (auto) 0.9 uL; Monocytes % (auto) 5.1 % (0.0-12.0); Neutrophils # (auto) 14.4 uL; Neutrophils % (auto) 81.8 % (37.0-80.0); Platelet Count (auto) 103 10^3/uL (140-450); White Blood Cell 17.6 10^3/uL (4.4-10.8)
[2016-10-18 05:47] LABS: Red Cell Distribution Width 23.5 % (11.6-16.0)
[2016-10-18 06:09] LABS: Hypersegmented Neutrophils Present; Platelet Estimate Decreased
[2016-10-18 06:10] LABS: Anisocytosis Moderate
[2016-10-18 06:14] LABS: Calcium 7.4 mg/dL (8.5-10.1); Potassium 3.8 mmol/L (3.5-5.1)
[2016-10-18 06:16] LABS: BUN/Creatinine Ratio 50.8
[2016-10-18 08:00] VITALS: BP 117/46
[2016-10-18] MEDS: BOOST PLUS 8 ounce PO SCH ×3 (08:11→18:00)
[2016-10-18] MEDS: PRO-STAT 64 30ML PO SCH ×2 (08:11→18:00)
[2016-10-18] MEDS: LINEZOLID 600MG/300ML 300 ML IV SCH ×2 (08:11→20:01)
[2016-10-18] MEDS: MEROPENEM 1GM IVPB 100 ML IV SCH ×2 (10:03→21:35)
[2016-10-18] MEDS: ENOXAPARIN SOD 40 MG/0.4 ML SYRINGE SC SCH ×2 (10:03→21:35)
[2016-10-18] MEDS: MULTIPLE VITAMINS W/ MINERALS TAB PO SCH (10:04)
[2016-10-18] MEDS: ASCORBIC ACID 500 MG TAB PO SCH ×2 (10:04→21:35)
[2016-10-18 12:00] VITALS: BP 114/53
[2016-10-18 16:00] VITALS: BP 114/57
[2016-10-18] MEDS: THROAT LOZENGES(CEPASTAT) MT PRN (17:41)
[2016-10-18 20:00] VITALS: BP_SYST 114; BP_SYST 115; BP_DIAS 56; BP_DIAS 61
[2016-10-18 23:43] VITALS: BP 109/44
[2016-10-19] VITALS (7 sets, daily range): BP systolic 110–123; BP diastolic 49–70
[2016-10-19] MEDS: IPRATROPIUM BROM 0.5 MG/2.5ML INH SOL NEB SCH ×6 (02:18→22:08)
[2016-10-19] MEDS: ACETYLCYSTEINE 10 %(100MG/ML) SOL 4ML NEB SCH ×6 (02:18→22:08)
[2016-10-19] MEDS: ALBUTEROL SULF 2.5 MG/0.5ML(0.5%) NEB SOLN NEB SCH ×6 (02:18→22:08)
[2016-10-19] MEDS: BOOST PLUS 8 ounce PO SCH ×3 (08:00→18:00)
[2016-10-19] MEDS: MULTIPLE VITAMINS W/ MINERALS TAB PO SCH (11:00)
[2016-10-19] MEDS: ENOXAPARIN SOD 40 MG/0.4 ML SYRINGE SC SCH ×2 (11:00→21:29)
[2016-10-19] MEDS: MEROPENEM 1GM IVPB 100 ML IV SCH ×2 (11:00→21:29)
[2016-10-19] MEDS: LINEZOLID 600MG/300ML 300 ML IV SCH ×2 (11:00→19:39)
[2016-10-20] MEDS: ACETYLCYSTEINE 10 %(100MG/ML) SOL 4ML NEB SCH ×6 (02:35→22:26)
[2016-10-20] MEDS: IPRATROPIUM BROM 0.5 MG/2.5ML INH SOL NEB SCH ×6 (02:35→22:25)
[2016-10-20] MEDS: ALBUTEROL SULF 2.5 MG/0.5ML(0.5%) NEB SOLN NEB SCH ×6 (02:35→22:26)
[2016-10-20 03:53] VITALS: BP 132/82
[2016-10-20] MEDS: BOOST PLUS 8 ounce PO SCH ×3 (08:00→18:00)
[2016-10-20] MEDS: LINEZOLID 600MG/300ML 300 ML IV SCH ×2 (08:22→20:20)
[2016-10-20] MEDS: ENOXAPARIN SOD 40 MG/0.4 ML SYRINGE SC SCH ×2 (10:13→21:56)
[2016-10-20] MEDS: MEROPENEM 1GM IVPB 100 ML IV SCH ×2 (10:13→21:56)
[2016-10-20] MEDS: MULTIPLE VITAMINS W/ MINERALS TAB PO SCH (10:13)
[2016-10-20 12:00] VITALS: BP 130/73
[2016-10-20 12:26] LABS: Basophils # (auto) 0.1 uL; Basophils % (auto) 0.4 % (0.0-2.0); CONDITION Y; DEFINITIVE SEE PRINTOUT; Eosinophils # (auto) 0.3 uL; Hematocrit 33.3 % (36.0-46.0); Hemoglobin 10.7 g/dL (12.2-16.2); Lymphocytes # (auto) 1.2 uL; Lymphocytes % (auto) 7.6 % (10.0-50.0); Mean Corpuscular Hemoglobin 29.3 pg (28.0-32.0); Mean Corpuscular Hgb Conc. 32.2 g/dL (32.0-36.0); Mean Corpuscular Volume 91.1 fL (80.0-100.0); Mean Platelet Volume 10.7 fL (7.4-10.4); Monocytes # (auto) 0.9 uL; Monocytes % (auto) 5.9 % (0.0-12.0); Neutrophils # (auto) 13.6 uL; Neutrophils % (auto) 84.1 % (37.0-80.0); Platelet Count (auto) 117 10^3/uL (140-450); White Blood Cell 16.1 10^3/uL (4.4-10.8)
[2016-10-20 12:39] LABS: Red Cell Distribution Width 22.9 % (11.6-16.0)
[2016-10-20 12:50] LABS: Calcium 7.6 mg/dL (8.5-10.1); Potassium 3.9 mmol/L (3.5-5.1)
[2016-10-20 13:22] LABS: Anisocytosis Moderate; Platelet Estimate Decreased
[2016-10-20 13:26] LABS: Burr Cells FEW; Ovalocytes FEW
[2016-10-20 13:27] LABS: Stomatocytes Few
[2016-10-20 16:00] VITALS: BP 134/62
[2016-10-20] MEDS: PRO-STAT 64 30ML PO SCH (18:00)
[2016-10-20 20:00] VITALS: BP 133/63
[2016-10-20] MEDS ORDERED: METOPROLOL TARTRATE 1MG/1ML-5ML VIAL IV PRN (22:15)
[2016-10-20 23:56] VITALS: BP 120/67
[2016-10-21] VITALS (7 sets, daily range): BP systolic 103–153; BP diastolic 51–89
[2016-10-21] MEDS: ACETYLCYSTEINE 10 %(100MG/ML) SOL 4ML NEB SCH ×5 (01:57→18:25)
[2016-10-21] MEDS: IPRATROPIUM BROM 0.5 MG/2.5ML INH SOL NEB SCH ×6 (01:57→22:34)
[2016-10-21] MEDS: ALBUTEROL SULF 2.5 MG/0.5ML(0.5%) NEB SOLN NEB SCH ×5 (01:57→18:25)
[2016-10-21 05:56] LABS: Basophils # (auto) 0 uL; Basophils % (auto) 0.1 % (0.0-2.0); CONDITION Y; DEFINITIVE SEE PRINTOUT; Eosinophils # (auto) 0.4 uL; Eosinophils % (auto) 2.9 % (0.0-7.0); Hematocrit 31.4 % (36.0-46.0); Lymphocytes # (auto) 1.4 uL; Lymphocytes % (auto) 8.8 % (10.0-50.0); Mean Corpuscular Hemoglobin 29.1 pg (28.0-32.0); Mean Corpuscular Hgb Conc. 31.8 g/dL (32.0-36.0); Mean Corpuscular Volume 91.6 fL (80.0-100.0); Mean Platelet Volume 11.1 fL (7.4-10.4); Monocytes % (auto) 6.4 % (0.0-12.0); Neutrophils # (auto) 12.7 uL; Neutrophils % (auto) 81.8 % (37.0-80.0); Platelet Count (auto) 98 10^3/uL (140-450); White Blood Cell 15.6 10^3/uL (4.4-10.8)
[2016-10-21 06:36] LABS: Potassium 3.4 mmol/L (3.5-5.1)
[2016-10-21 06:50] LABS: Albumin 1.9 g/dL (3.4-5.0); BUN/Creatinine Ratio 53.3; Calcium 7.4 mg/dL (8.5-10.1)
[2016-10-21 06:55] LABS: Bilirubin, Total 1.2 mg/dL (0.2-1.0); Total Protein 4.7 g/dL (6.4-8.2)
[2016-10-21 06:58] LABS: Anisocytosis Moderate; Platelet Estimate Decreased
[2016-10-21 06:59] LABS: Burr Cells FEW; Ovalocytes FEW
[2016-10-21] MEDS: LINEZOLID 600MG/300ML 300 ML IV SCH ×2 (08:23→20:00)
[2016-10-21] MEDS: BOOST PLUS 8 ounce PO SCH ×3 (08:23→18:26)
[2016-10-21] MEDS: PRO-STAT 64 30ML PO SCH ×2 (09:45→18:00)
[2016-10-21] MEDS: MULTIPLE VITAMINS W/ MINERALS TAB PO SCH (09:46)
[2016-10-21] MEDS: FUROSEMIDE 40 MG/4 ML VIAL IV SCH (09:46)
[2016-10-21] MEDS: ENOXAPARIN SOD 40 MG/0.4 ML SYRINGE SC SCH (09:46)
[2016-10-21] MEDS: LACTULOSE 20Gm/30ML SOLN PO SCH (09:46)
[2016-10-21] MEDS: MEROPENEM 1GM IVPB 100 ML IV SCH ×3 (09:46→22:00)
[2016-10-21] MEDS ORDERED: FLUCONAZOLE 100MG/50ML 50 ML IV ONE (14:15)
[2016-10-21] MEDS ORDERED: DIGOXIN (250MCG/ML) 2 ML AMPULE IV ONE (21:30)
[2016-10-21] MEDS ORDERED: DRONEDARONE HCL 400 MG TAB PO SCH (22:15)
[2016-10-21] MEDS: LEVALBUTEROL HCL 1.25 MG/3 ML NEB HHN SCH (22:34)
[2016-10-21] MEDS: METOPROLOL TARTRATE 25 MG TAB PO SCH (22:45)
[2016-10-21] MEDS: APIXABAN 2.5 MG TAB PO SCH (22:45)
[2016-10-22 04:57] LABS: Basophils # (auto) 0 uL; Basophils % (auto) 0.1 % (0.0-2.0); CONDITION Y; DEFINITIVE SEE PRINTOUT; Eosinophils # (auto) 0.3 uL; Eosinophils % (auto) 2.3 % (0.0-7.0); Hematocrit 29.2 % (36.0-46.0); Hemoglobin 9.4 g/dL (12.2-16.2); Lymphocytes # (auto) 1.3 uL; Mean Corpuscular Hemoglobin 29.6 pg (28.0-32.0); Mean Corpuscular Hgb Conc. 32.3 g/dL (32.0-36.0); Mean Corpuscular Volume 91.4 fL (80.0-100.0); Mean Platelet Volume 11.2 fL (7.4-10.4); Monocytes % (auto) 6.6 % (0.0-12.0); Neutrophils # (auto) 12.1 uL; Platelet Count (auto) 85 10^3/uL (140-450); White Blood Cell 14.8 10^3/uL (4.4-10.8)
[2016-10-22 05:24] LABS: BUN/Creatinine Ratio 52.2; Calcium 7.3 mg/dL (8.5-10.1); Potassium 3.5 mmol/L (3.5-5.1)
[2016-10-22 05:44] LABS: Anisocytosis Moderate; Ovalocytes FEW; Platelet Estimate Decreased
[2016-10-22 05:45] LABS: Stomatocytes Few
[2016-10-22 06:00] VITALS: BP 101/55
[2016-10-22] MEDS: LEVALBUTEROL HCL 1.25 MG/3 ML NEB HHN SCH ×4 (06:30→22:13)
[2016-10-22] MEDS: IPRATROPIUM BROM 0.5 MG/2.5ML INH SOL NEB SCH ×4 (06:30→22:13)
[2016-10-22 08:00] VITALS: BP 95/59
[2016-10-22] MEDS: PRO-STAT 64 30ML PO SCH ×2 (08:00→17:28)
[2016-10-22] MEDS: BOOST PLUS 8 ounce PO SCH ×3 (08:00→17:28)
[2016-10-22] MEDS: LINEZOLID 600MG/300ML 300 ML IV SCH ×2 (08:00→21:08)
[2016-10-22] MEDS: LACTULOSE 20Gm/30ML SOLN PO SCH (10:00)
[2016-10-22] MEDS: MEROPENEM 1GM IVPB 100 ML IV SCH ×2 (10:00→22:07)
[2016-10-22] MEDS: METOPROLOL TARTRATE 25 MG TAB PO SCH ×2 (10:00→21:33)
[2016-10-22] MEDS: FUROSEMIDE 40 MG/4 ML VIAL IV SCH (10:00)
[2016-10-22] MEDS: MULTIPLE VITAMINS W/ MINERALS TAB PO SCH (10:22)
[2016-10-22] MEDS: APIXABAN 2.5 MG TAB PO SCH ×2 (10:22→21:35)
[2016-10-22] MEDS: FLUCONAZOLE 100MG/50ML 50 ML IV SCH (10:22)
[2016-10-22] MEDS: DRONEDARONE HCL 400 MG TAB PO SCH ×3 (10:22→22:00)
[2016-10-22 12:00] VITALS: BP 101/49
[2016-10-22] MEDS: DIGOXIN 0.25 MG TAB PO SCH (15:15)
[2016-10-22] MEDS: THROAT LOZENGES(CEPASTAT) MT PRN (15:49)
[2016-10-22 16:00] VITALS: BP 96/52
[2016-10-22] MEDS ORDERED: LORazepam 2MG/ML-1ML VIAL IV PRN (17:30)
[2016-10-22 19:58] VITALS: BP 97/49
[2016-10-22 23:52] VITALS: BP 122/78
[2016-10-23 04:00] VITALS: BP 95/48
[2016-10-23] MEDS: IPRATROPIUM BROM 0.5 MG/2.5ML INH SOL NEB SCH ×3 (05:40→22:24)
[2016-10-23] MEDS: LEVALBUTEROL HCL 1.25 MG/3 ML NEB HHN SCH ×4 (05:41→22:25)
[2016-10-23 08:00] VITALS: BP 98/61
[2016-10-23] MEDS: BOOST PLUS 8 ounce PO SCH ×3 (08:05→18:08)
[2016-10-23] MEDS: PRO-STAT 64 30ML PO SCH ×2 (08:05→11:58)
[2016-10-23] MEDS: LINEZOLID 600MG/300ML 300 ML IV SCH ×2 (09:14→20:01)
[2016-10-23] MEDS: LACTULOSE 20Gm/30ML SOLN PO SCH (09:50)
[2016-10-23] MEDS: MEROPENEM 1GM IVPB 100 ML IV SCH ×2 (09:50→21:56)
[2016-10-23] MEDS: DRONEDARONE HCL 400 MG TAB PO SCH ×2 (10:00→21:54)
[2016-10-23] MEDS: FUROSEMIDE 40 MG/4 ML VIAL IV SCH (10:00)
[2016-10-23] MEDS: APIXABAN 2.5 MG TAB PO SCH ×2 (10:00→21:52)
[2016-10-23] MEDS: DIGOXIN 0.25 MG TAB PO SCH (10:01)
[2016-10-23] MEDS: METOPROLOL TARTRATE 25 MG TAB PO SCH ×2 (10:02→21:54)
[2016-10-23] MEDS: MULTIPLE VITAMINS W/ MINERALS TAB PO SCH (10:02)
[2016-10-23] MEDS: FLUCONAZOLE 100MG/50ML 50 ML IV SCH (11:57)
[2016-10-23 12:00] VITALS: BP 104/55
[2016-10-23 16:00] VITALS: BP 99/46
[2016-10-23 19:54] VITALS: BP 105/52
[2016-10-24] VITALS (7 sets, daily range): BP systolic 88–135; BP diastolic 43–88
[2016-10-24 06:41] LABS: Basophils # (auto) 0.1 uL; Basophils % (auto) 0.4 % (0.0-2.0); CONDITION Y; DEFINITIVE SEE PRINTOUT; Eosinophils # (auto) 0.6 uL; Eosinophils % (auto) 4.7 % (0.0-7.0); Hematocrit 30.9 % (36.0-46.0); Hemoglobin 9.9 g/dL (12.2-16.2); Lymphocytes # (auto) 1.3 uL; Lymphocytes % (auto) 10.8 % (10.0-50.0); Mean Corpuscular Hemoglobin 29.2 pg (28.0-32.0); Mean Corpuscular Volume 91.4 fL (80.0-100.0); Monocytes # (auto) 0.6 uL; Monocytes % (auto) 4.8 % (0.0-12.0); Neutrophils # (auto) 9.5 uL; Neutrophils % (auto) 79.3 % (37.0-80.0); Platelet Count (auto) 86 10^3/uL (140-450); White Blood Cell 11.9 10^3/uL (4.4-10.8)
[2016-10-24 06:52] LABS: Red Cell Distribution Width 22.1 % (11.6-16.0)
[2016-10-24 07:06] LABS: BUN/Creatinine Ratio 47.4; Calcium 7.7 mg/dL (8.5-10.1); Potassium 3.3 mmol/L (3.5-5.1)
[2016-10-24] MEDS: LEVALBUTEROL HCL 1.25 MG/3 ML NEB HHN SCH ×4 (07:31→22:14)
[2016-10-24] MEDS: IPRATROPIUM BROM 0.5 MG/2.5ML INH SOL NEB SCH ×4 (07:31→22:14)
[2016-10-24] MEDS: BOOST PLUS 8 ounce PO SCH ×3 (08:00→20:45)
[2016-10-24 08:44] LABS: Anisocytosis Moderate; Burr Cells FEW; Ovalocytes FEW; Platelet Estimate Decreased
[2016-10-24] MEDS: PRO-STAT 64 30ML PO SCH ×2 (09:28→20:45)
[2016-10-24] MEDS: DIGOXIN 0.25 MG TAB PO SCH (09:30)
[2016-10-24] MEDS: LINEZOLID 600MG/300ML 300 ML IV SCH ×2 (09:30→20:04)
[2016-10-24] MEDS: DRONEDARONE HCL 400 MG TAB PO SCH ×2 (09:30→21:57)
[2016-10-24] MEDS: FUROSEMIDE 40 MG/4 ML VIAL IV SCH (09:30)
[2016-10-24] MEDS: APIXABAN 2.5 MG TAB PO SCH ×2 (09:31→21:57)
[2016-10-24] MEDS: MULTIPLE VITAMINS W/ MINERALS TAB PO SCH (09:31)
[2016-10-24] MEDS: METOPROLOL TARTRATE 25 MG TAB PO SCH ×2 (09:31→22:00)
[2016-10-24] MEDS: LACTULOSE 20Gm/30ML SOLN PO SCH (10:00)
[2016-10-24] MEDS: FLUCONAZOLE 100MG/50ML 50 ML IV SCH (10:00)
[2016-10-24] MEDS: MEROPENEM 1GM IVPB 100 ML IV SCH ×2 (12:37→22:11)
[2016-10-25] VITALS (7 sets, daily range): BP systolic 87–118; BP diastolic 38–55
[2016-10-25] MEDS: IPRATROPIUM BROM 0.5 MG/2.5ML INH SOL NEB SCH ×4 (07:11→22:17)
[2016-10-25] MEDS: LEVALBUTEROL HCL 1.25 MG/3 ML NEB HHN SCH ×4 (07:11→22:17)
[2016-10-25 07:43] LABS: Basophils # (auto) 0 uL; Basophils % (auto) 0.4 % (0.0-2.0); CONDITION Y; DEFINITIVE SEE PRINTOUT; Eosinophils # (auto) 0.3 uL; Eosinophils % (auto) 3.3 % (0.0-7.0); Hematocrit 28.4 % (36.0-46.0); Hemoglobin 9.2 g/dL (12.2-16.2); Lymphocytes # (auto) 1.1 uL; Lymphocytes % (auto) 10.6 % (10.0-50.0); Mean Corpuscular Hemoglobin 29.2 pg (28.0-32.0); Mean Corpuscular Hgb Conc. 32.4 g/dL (32.0-36.0); Mean Corpuscular Volume 90.2 fL (80.0-100.0); Mean Platelet Volume 10.9 fL (7.4-10.4); Monocytes # (auto) 0.5 uL; Neutrophils # (auto) 8.2 uL; Neutrophils % (auto) 80.7 % (37.0-80.0); Platelet Count (auto) 94 10^3/uL (140-450); SUSPECT SEE PRINTOUT; White Blood Cell 10.1 10^3/uL (4.4-10.8)
[2016-10-25 07:50] LABS: Red Cell Distribution Width 21.7 % (11.6-16.0)
[2016-10-25] MEDS: BOOST PLUS 8 ounce PO SCH ×3 (08:00→18:00)
[2016-10-25] MEDS: PRO-STAT 64 30ML PO SCH ×2 (08:00→18:00)
[2016-10-25] MEDS: LINEZOLID 600MG/300ML 300 ML IV SCH (08:00)
[2016-10-25 08:06] LABS: Anisocytosis Slight
[2016-10-25 08:07] LABS: BUN/Creatinine Ratio 44.6; Calcium 7.3 mg/dL (8.5-10.1); Hypochromia Slight; Platelet Estimate Decreased; Potassium 3.7 mmol/L (3.5-5.1); Stomatocytes Few
[2016-10-25] MEDS: DIGOXIN 0.25 MG TAB PO SCH ×2 (10:00→10:18)
[2016-10-25] MEDS: FUROSEMIDE 40 MG/4 ML VIAL IV SCH (10:00)
[2016-10-25] MEDS: LACTULOSE 20Gm/30ML SOLN PO SCH (10:00)
[2016-10-25] MEDS: APIXABAN 2.5 MG TAB PO SCH ×2 (10:18→21:37)
[2016-10-25] MEDS: DRONEDARONE HCL 400 MG TAB PO SCH ×2 (10:18→21:37)
[2016-10-25] MEDS: MULTIPLE VITAMINS W/ MINERALS TAB PO SCH (10:19)
[2016-10-25] MEDS: METOPROLOL TARTRATE 25 MG TAB PO SCH ×2 (10:19→21:37)
[2016-10-25] MEDS: FLUCONAZOLE 100MG/50ML 50 ML IV SCH (10:19)
[2016-10-25] MEDS: MEROPENEM 1GM IVPB 100 ML IV SCH (11:33)
[2016-10-25] MEDS ORDERED: SODIUM CHLORIDE 0.9% 250 ML IV ONE (18:45)
[2016-10-26] VITALS (26 sets, daily range): BP systolic 91–111; BP diastolic 36–61
[2016-10-26] MEDS: IPRATROPIUM BROM 0.5 MG/2.5ML INH SOL NEB SCH ×4 (07:06→22:29)
[2016-10-26] MEDS: LEVALBUTEROL HCL 1.25 MG/3 ML NEB HHN SCH ×4 (07:06→22:29)
[2016-10-26] MEDS: PRO-STAT 64 30ML PO SCH ×2 (10:39→18:24)
[2016-10-26] MEDS: FUROSEMIDE 40 MG/4 ML VIAL IV SCH (10:40)
[2016-10-26] MEDS: LACTULOSE 20Gm/30ML SOLN PO SCH (10:40)
[2016-10-26] MEDS: FLUCONAZOLE 100MG/50ML 50 ML IV SCH (10:40)
[2016-10-26] MEDS: BOOST PLUS 8 ounce PO SCH ×3 (10:40→18:24)
[2016-10-26] MEDS: DIGOXIN 0.25 MG TAB PO SCH (10:41)
[2016-10-26] MEDS: DRONEDARONE HCL 400 MG TAB PO SCH ×2 (10:41→21:55)
[2016-10-26] MEDS: APIXABAN 2.5 MG TAB PO SCH ×2 (10:41→21:55)
[2016-10-26] MEDS: MULTIPLE VITAMINS W/ MINERALS TAB PO SCH (10:41)
[2016-10-26] MEDS: METOPROLOL TARTRATE 25 MG TAB PO SCH ×2 (10:41→21:55)
[2016-10-26 10:55] LABS: Basophils # (auto) 0 uL; Basophils % (auto) 0.2 % (0.0-2.0); CONDITION Y; DEFINITIVE SEE PRINTOUT; Eosinophils # (auto) 0.2 uL; Eosinophils % (auto) 2.7 % (0.0-7.0); Hematocrit 23.1 % (36.0-46.0); Hemoglobin 7.6 g/dL (12.2-16.2); Lymphocytes % (auto) 12.3 % (10.0-50.0); Mean Corpuscular Hemoglobin 29.5 pg (28.0-32.0); Mean Corpuscular Hgb Conc. 32.8 g/dL (32.0-36.0); Mean Platelet Volume 10.2 fL (7.4-10.4); Monocytes # (auto) 0.3 uL; Monocytes % (auto) 3.6 % (0.0-12.0); Neutrophils # (auto) 6.3 uL; Neutrophils % (auto) 81.2 % (37.0-80.0); Platelet Count (auto) 86 10^3/uL (140-450); White Blood Cell 7.8 10^3/uL (4.4-10.8)
[2016-10-26 11:07] LABS: Red Cell Distribution Width 21.6 % (11.6-16.0)
[2016-10-26 11:21] LABS: Albumin 1.7 g/dL (3.4-5.0); Bilirubin, Total 0.8 mg/dL (0.2-1.0); Calcium 7.3 mg/dL (8.5-10.1); Magnesium 2.3 mg/dL (1.6-2.6); Potassium 3.3 mmol/L (3.5-5.1); Total Protein 4.2 g/dL (6.4-8.2)
[2016-10-26 11:22] LABS: Allen Test Yes; Blood 02Sat 95.5 % (96-100); Blood COHb 0.1 % (0.5-1.5); Blood MetHb 0.5 % (0.0-1.5); HHb 4.5 % (0.0-5.0); MODE MASK - VENTI; O2Hb 94.9 % (94.0-97.0); PCO2 49.7 mmHg (35.0-45.0); PCO2(T) 49.7 mmHg (35.0-45.0); PO2 91.4 mmHg (80.0-100.0); PO2(T) 91.4 mmHg (80.0-100.0); Room 0262D; Sample Type Arterial; pH 7.453 (7.350-7.450)
[2016-10-26 12:05] LABS: Platelet Estimate Decreased
[2016-10-26 12:06] LABS: Anisocytosis Slight
[2016-10-26] MEDS ORDERED: POTASSIUM CHL 20MEQ/100ML 100 ML IV ONE (15:00)
[2016-10-27] VITALS (7 sets, daily range): BP systolic 90–114; BP diastolic 46–60
[2016-10-27] MEDS: IPRATROPIUM BROM 0.5 MG/2.5ML INH SOL NEB SCH ×4 (05:42→22:26)
[2016-10-27] MEDS: LEVALBUTEROL HCL 1.25 MG/3 ML NEB HHN SCH ×4 (05:43→22:26)
[2016-10-27 05:48] LABS: Basophils # (auto) 0 uL; Basophils % (auto) 0.5 % (0.0-2.0); CONDITION Y; DEFINITIVE SEE PRINTOUT; Eosinophils # (auto) 0.3 uL; Eosinophils % (auto) 3.8 % (0.0-7.0); Hematocrit 26.4 % (36.0-46.0); Hemoglobin 8.6 g/dL (12.2-16.2); Lymphocytes # (auto) 1.1 uL; Lymphocytes % (auto) 11.9 % (10.0-50.0); Mean Corpuscular Hemoglobin 29.6 pg (28.0-32.0); Mean Corpuscular Hgb Conc. 32.7 g/dL (32.0-36.0); Mean Corpuscular Volume 90.7 fL (80.0-100.0); Mean Platelet Volume 10.9 fL (7.4-10.4); Monocytes # (auto) 0.5 uL; Neutrophils # (auto) 7.1 uL; Neutrophils % (auto) 78.8 % (37.0-80.0); Platelet Count (auto) 85 10^3/uL (140-450); Red Cell Distribution Width 19.9 % (11.6-16.0); White Blood Cell 9.1 10^3/uL (4.4-10.8)
[2016-10-27 05:57] LABS: Albumin 1.6 g/dL (3.4-5.0); BUN/Creatinine Ratio 51.5; Calcium 7.2 mg/dL (8.5-10.1); Magnesium 2.1 mg/dL (1.6-2.6); Potassium 3.5 mmol/L (3.5-5.1)
[2016-10-27 06:00] LABS: Total Protein 4.2 g/dL (6.4-8.2)
[2016-10-27] MEDS: BOOST PLUS 8 ounce PO SCH ×3 (08:00→18:00)
[2016-10-27] MEDS: PRO-STAT 64 30ML PO SCH ×2 (08:00→18:00)
[2016-10-27] MEDS: DIGOXIN 0.25 MG TAB PO SCH (10:00)
[2016-10-27] MEDS: LACTULOSE 20Gm/30ML SOLN PO SCH (10:00)
[2016-10-27] MEDS: METOPROLOL TARTRATE 25 MG TAB PO SCH ×2 (10:00→21:21)
[2016-10-27] MEDS: FUROSEMIDE 40 MG/4 ML VIAL IV SCH (10:39)
[2016-10-27] MEDS: DRONEDARONE HCL 400 MG TAB PO SCH ×2 (10:39→21:21)
[2016-10-27] MEDS: APIXABAN 2.5 MG TAB PO SCH ×2 (10:39→21:21)
[2016-10-27] MEDS: FLUCONAZOLE 100MG/50ML 50 ML IV SCH (11:07)
[2016-10-27] MEDS: MICAFUNGIN SODIUM 100 MG in SODIUM CHL 0.9% 100 ML IV SCH (18:08)
[2016-10-28 00:08] VITALS: BP 91/41
[2016-10-28 04:10] VITALS: BP 88/44
[2016-10-28] MEDS: IPRATROPIUM BROM 0.5 MG/2.5ML INH SOL NEB SCH ×4 (05:33→18:34)
[2016-10-28] MEDS: LEVALBUTEROL HCL 1.25 MG/3 ML NEB HHN SCH ×2 (05:38→14:11)
[2016-10-28 08:00] VITALS: BP 101/55
[2016-10-28] MEDS: BOOST PLUS 8 ounce PO SCH ×3 (08:00→17:25)
[2016-10-28] MEDS: PRO-STAT 64 30ML PO SCH ×2 (08:00→17:25)
[2016-10-28] MEDS: METOPROLOL TARTRATE 25 MG TAB PO SCH ×2 (09:52→22:03)
[2016-10-28] MEDS: FUROSEMIDE 40 MG/4 ML VIAL IV SCH (09:52)
[2016-10-28] MEDS: LACTULOSE 20Gm/30ML SOLN PO SCH (09:53)
[2016-10-28] MEDS: DIGOXIN 0.25 MG TAB PO SCH (09:54)
[2016-10-28] MEDS: APIXABAN 2.5 MG TAB PO SCH ×2 (09:57→22:01)
[2016-10-28] MEDS: DRONEDARONE HCL 400 MG TAB PO SCH ×2 (09:58→22:01)
[2016-10-28 12:00] VITALS: BP 108/54
[2016-10-28] MEDS: LEVALBUTEROL HCL 1.25 MG/0.5 ML NEB SOLN HHN SCH ×3 (14:10→22:00)
[2016-10-28 15:58] VITALS: BP 107/51
[2016-10-28] MEDS: MICAFUNGIN SODIUM 100 MG in SODIUM CHL 0.9% 100 ML IV SCH (18:08)
[2016-10-28 19:52] VITALS: BP 111/61
[2016-10-28] MEDS: MORPHINE SULF INJ 2 MG/ML SYRINGE 1ML IV PRN (22:03)
[2016-10-29] VITALS: BP 83/40
[2016-10-29 04:00] VITALS: BP 90/44
[2016-10-29] MEDS: IPRATROPIUM BROM 0.5 MG/2.5ML INH SOL NEB SCH ×4 (06:20→22:00)
[2016-10-29] MEDS: LEVALBUTEROL HCL 1.25 MG/0.5 ML NEB SOLN HHN SCH ×4 (06:20→22:00)
[2016-10-29] MEDS: MORPHINE SULF INJ 2 MG/ML SYRINGE 1ML IV PRN (07:06)
[2016-10-29 08:00] VITALS: BP 92/49
[2016-10-29] MEDS: BOOST PLUS 8 ounce PO SCH ×3 (08:00→18:00)
[2016-10-29] MEDS: PRO-STAT 64 30ML PO SCH ×2 (08:00→18:00)
[2016-10-29] MEDS: METOPROLOL TARTRATE 25 MG TAB PO SCH ×2 (10:00→21:56)
[2016-10-29] MEDS: DIGOXIN 0.25 MG TAB PO SCH (10:00)
[2016-10-29] MEDS: APIXABAN 2.5 MG TAB PO SCH ×2 (11:38→21:55)
[2016-10-29] MEDS: FUROSEMIDE 40 MG/4 ML VIAL IV SCH (11:39)
[2016-10-29] MEDS: LACTULOSE 20Gm/30ML SOLN PO SCH (11:39)
[2016-10-29] MEDS: DRONEDARONE HCL 400 MG TAB PO SCH ×2 (11:39→21:55)
[2016-10-29 12:00] VITALS: BP 101/46
[2016-10-29 14:22] LABS: INR 1.4 (0.9-1.15)
[2016-10-29 14:27] LABS: Basophils # (auto) 0 uL; Basophils % (auto) 0.3 % (0.0-2.0); CONDITION Y; DEFINITIVE SEE PRINTOUT; Eosinophils # (auto) 0.3 uL; Eosinophils % (auto) 3.8 % (0.0-7.0); Hematocrit 25.6 % (36.0-46.0); Hemoglobin 8.7 g/dL (12.2-16.2); Lymphocytes # (auto) 1.3 uL; Lymphocytes % (auto) 14.4 % (10.0-50.0); Mean Corpuscular Hemoglobin 30.5 pg (28.0-32.0); Mean Corpuscular Volume 89.6 fL (80.0-100.0); Mean Platelet Volume 10.7 fL (7.4-10.4); Monocytes # (auto) 0.9 uL; Monocytes % (auto) 10.7 % (0.0-12.0); Neutrophils # (auto) 6.2 uL; Neutrophils % (auto) 70.8 % (37.0-80.0); Platelet Count (auto) 106 10^3/uL (140-450); Red Cell Distribution Width 19.7 % (11.6-16.0); SUSPECT SEE PRINTOUT; White Blood Cell 8.8 10^3/uL (4.4-10.8)
[2016-10-29 14:30] LABS: Prothrombin Time 15.3 sec (9.37-12.3)
[2016-10-29 16:00] VITALS: BP 98/56
[2016-10-29] MEDS ORDERED: LIDOCAINE 1% HCL (LOCAL ANESTH.) INJ 20ML MDV ONE (16:25)
[2016-10-29] MEDS: MICAFUNGIN SODIUM 100 MG in SODIUM CHL 0.9% 100 ML IV SCH (18:47)
[2016-10-29 20:00] VITALS: BP 101/49
[2016-10-30] VITALS (7 sets, daily range): BP systolic 84–111; BP diastolic 45–62
[2016-10-30] MEDS: LEVALBUTEROL HCL 1.25 MG/0.5 ML NEB SOLN HHN SCH ×4 (06:43→21:52)
[2016-10-30] MEDS: IPRATROPIUM BROM 0.5 MG/2.5ML INH SOL NEB SCH ×4 (06:46→21:51)
[2016-10-30] MEDS: BOOST PLUS 8 ounce PO SCH ×3 (08:00→18:00)
[2016-10-30] MEDS: PRO-STAT 64 30ML PO SCH ×2 (08:00→18:00)
[2016-10-30] MEDS: FUROSEMIDE 40 MG/4 ML VIAL IV SCH (10:00)
[2016-10-30] MEDS: LACTULOSE 20Gm/30ML SOLN PO SCH (10:00)
[2016-10-30] MEDS: METOPROLOL TARTRATE 25 MG TAB PO SCH ×2 (10:00→21:55)
[2016-10-30] MEDS: DIGOXIN 0.25 MG TAB PO SCH (10:00)
[2016-10-30] MEDS: DRONEDARONE HCL 400 MG TAB PO SCH ×2 (10:00→21:56)
[2016-10-30] MEDS: APIXABAN 2.5 MG TAB PO SCH ×2 (10:52→21:57)
[2016-10-30] MEDS: MICAFUNGIN SODIUM 100 MG in SODIUM CHL 0.9% 100 ML IV SCH (18:25)
[2016-10-31] VITALS: BP 103/54
[2016-10-31 04:00] VITALS: BP 98/42
[2016-10-31] MEDS: LEVALBUTEROL HCL 1.25 MG/0.5 ML NEB SOLN HHN SCH ×4 (06:00→22:44)
[2016-10-31] MEDS: IPRATROPIUM BROM 0.5 MG/2.5ML INH SOL NEB SCH ×4 (06:38→22:43)
[2016-10-31 08:00] VITALS: BP 103/47
[2016-10-31] MEDS: PRO-STAT 64 30ML PO SCH ×2 (08:00→18:00)
[2016-10-31] MEDS: BOOST PLUS 8 ounce PO SCH ×2 (08:00→12:00)
[2016-10-31] MEDS: APIXABAN 2.5 MG TAB PO SCH ×2 (09:42→21:35)
[2016-10-31] MEDS: METOPROLOL TARTRATE 25 MG TAB PO SCH ×2 (09:57→21:35)
[2016-10-31] MEDS: FUROSEMIDE 40 MG/4 ML VIAL IV SCH (09:57)
[2016-10-31] MEDS: DIGOXIN 0.25 MG TAB PO SCH (09:57)
[2016-10-31] MEDS: DRONEDARONE HCL 400 MG TAB PO SCH ×2 (09:57→21:35)
[2016-10-31] MEDS: LACTULOSE 20Gm/30ML SOLN PO SCH (09:57)
[2016-10-31 12:00] VITALS: BP 111/52
[2016-10-31 16:00] VITALS: BP 108/45
[2016-10-31] MEDS: MICAFUNGIN SODIUM 100 MG in SODIUM CHL 0.9% 100 ML IV SCH (17:58)
[2016-10-31 20:00] VITALS: BP 113/52
[2016-11-01] VITALS: BP 105/50
[2016-11-01 03:50] VITALS: BP 101/48
[2016-11-01] MEDS: IPRATROPIUM BROM 0.5 MG/2.5ML INH SOL NEB SCH ×4 (05:56→22:32)
[2016-11-01] MEDS: LEVALBUTEROL HCL 1.25 MG/0.5 ML NEB SOLN HHN SCH ×4 (05:59→22:25)
[2016-11-01 08:00] VITALS: BP 102/48
[2016-11-01] MEDS: PRO-STAT 64 30ML PO SCH ×2 (08:00→18:00)
[2016-11-01] MEDS: METOPROLOL TARTRATE 25 MG TAB PO SCH ×2 (09:59→22:00)
[2016-11-01] MEDS: LACTULOSE 20Gm/30ML SOLN PO SCH (10:00)
[2016-11-01] MEDS: DIGOXIN 0.25 MG TAB PO SCH (10:14)
[2016-11-01] MEDS: FUROSEMIDE 40 MG/4 ML VIAL IV SCH (10:14)
[2016-11-01] MEDS: DRONEDARONE HCL 400 MG TAB PO SCH ×2 (10:15→23:26)
[2016-11-01] MEDS: APIXABAN 2.5 MG TAB PO SCH ×2 (10:15→23:23)
[2016-11-01 12:00] VITALS: BP 100/49
[2016-11-01 15:47] VITALS: BP 102/45
[2016-11-01] MEDS: MICAFUNGIN SODIUM 100 MG in SODIUM CHL 0.9% 100 ML IV SCH (18:22)
[2016-11-01 19:53] VITALS: BP 103/41
[2016-11-02] VITALS: BP 108/55
[2016-11-02 04:09] VITALS: BP 100/47
[2016-11-02] MEDS: LEVALBUTEROL HCL 1.25 MG/0.5 ML NEB SOLN HHN SCH ×4 (06:00→22:24)
[2016-11-02] MEDS: IPRATROPIUM BROM 0.5 MG/2.5ML INH SOL NEB SCH ×4 (06:00→22:24)
[2016-11-02 08:00] VITALS: BP 115/60
[2016-11-02] MEDS: PRO-STAT 64 30ML PO SCH ×2 (08:00→18:00)
[2016-11-02] MEDS: METOPROLOL TARTRATE 25 MG TAB PO SCH ×2 (10:00→21:56)
[2016-11-02] MEDS: LACTULOSE 20Gm/30ML SOLN PO SCH (10:00)
[2016-11-02] MEDS: DRONEDARONE HCL 400 MG TAB PO SCH ×2 (10:38→21:55)
[2016-11-02] MEDS: FUROSEMIDE 40 MG/4 ML VIAL IV SCH (10:40)
[2016-11-02] MEDS: APIXABAN 2.5 MG TAB PO SCH ×2 (10:40→21:55)
[2016-11-02] MEDS: DIGOXIN 0.25 MG TAB PO SCH (10:40)
[2016-11-02 12:00] VITALS: BP 107/45
[2016-11-02 15:54] VITALS: BP 110/54
[2016-11-02] MEDS: MICAFUNGIN SODIUM 100 MG in SODIUM CHL 0.9% 100 ML IV SCH (17:41)
[2016-11-02 19:48] VITALS: BP 102/43
[2016-11-03] VITALS (7 sets, daily range): BP systolic 92–110; BP diastolic 40–52
[2016-11-03] MEDS: LEVALBUTEROL HCL 1.25 MG/0.5 ML NEB SOLN HHN SCH ×4 (06:00→22:05)
[2016-11-03] MEDS: IPRATROPIUM BROM 0.5 MG/2.5ML INH SOL NEB SCH ×4 (06:09→22:05)
[2016-11-03] MEDS: PRO-STAT 64 30ML PO SCH ×2 (08:03→17:40)
[2016-11-03] MEDS: LACTULOSE 20Gm/30ML SOLN PO SCH ×2 (09:00→09:43)
[2016-11-03] MEDS: APIXABAN 2.5 MG TAB PO SCH ×2 (09:02→21:38)
[2016-11-03] MEDS: METOPROLOL TARTRATE 25 MG TAB PO SCH ×2 (09:09→21:35)
[2016-11-03] MEDS: DIGOXIN 0.25 MG TAB PO SCH (09:09)
[2016-11-03] MEDS: DRONEDARONE HCL 400 MG TAB PO SCH ×2 (09:10→21:38)
[2016-11-03] MEDS: FUROSEMIDE 40 MG/4 ML VIAL IV SCH ×2 (09:10→09:44)
[2016-11-03] MEDS: MICAFUNGIN SODIUM 100 MG in SODIUM CHL 0.9% 100 ML IV SCH (17:39)
[2016-11-04 06:00] VITALS: BP 125/60
[2016-11-04 06:26] LABS: Basophils # (auto) 0 uL; Basophils % (auto) 0.4 % (0.0-2.0); CONDITION Y; DEFINITIVE SEE PRINTOUT; Eosinophils # (auto) 0.6 uL; Eosinophils % (auto) 7.8 % (0.0-7.0); Hematocrit 28.4 % (36.0-46.0); Hemoglobin 9.1 g/dL (12.2-16.2); Lymphocytes # (auto) 0.9 uL; Lymphocytes % (auto) 11.8 % (10.0-50.0); Mean Corpuscular Hemoglobin 29.4 pg (28.0-32.0); Mean Corpuscular Hgb Conc. 32.2 g/dL (32.0-36.0); Mean Corpuscular Volume 91.5 fL (80.0-100.0); Mean Platelet Volume 9.1 fL (7.4-10.4); Monocytes % (auto) 13.1 % (0.0-12.0); Neutrophils # (auto) 4.9 uL; Neutrophils % (auto) 66.9 % (37.0-80.0); Platelet Count (auto) 295 10^3/uL (140-450); Red Cell Distribution Width 20.6 % (11.6-16.0); White Blood Cell 7.4 10^3/uL (4.4-10.8)
[2016-11-04] MEDS: LEVALBUTEROL HCL 1.25 MG/0.5 ML NEB SOLN HHN SCH ×4 (06:56→22:00)
[2016-11-04] MEDS: IPRATROPIUM BROM 0.5 MG/2.5ML INH SOL NEB SCH ×4 (06:57→22:51)
[2016-11-04 07:14] LABS: Albumin 1.8 g/dL (3.4-5.0); BUN/Creatinine Ratio 31.3; Bilirubin, Total 0.7 mg/dL (0.2-1.0); Calcium 7.5 mg/dL (8.5-10.1); Potassium 3.4 mmol/L (3.5-5.1); Total Protein 4.8 g/dL (6.4-8.2)
[2016-11-04] MEDS: PRO-STAT 64 30ML PO SCH ×2 (08:00→18:20)
[2016-11-04] MEDS: LACTULOSE 20Gm/30ML SOLN PO SCH (10:00)
[2016-11-04] MEDS: FUROSEMIDE 40 MG/4 ML VIAL IV SCH (10:14)
[2016-11-04] MEDS: APIXABAN 2.5 MG TAB PO SCH ×2 (10:14→21:17)
[2016-11-04] MEDS: METOPROLOL TARTRATE 25 MG TAB PO SCH ×2 (10:15→21:17)
[2016-11-04] MEDS: DIGOXIN 0.25 MG TAB PO SCH (10:15)
[2016-11-04] MEDS: DRONEDARONE HCL 400 MG TAB PO SCH ×2 (10:16→21:17)
[2016-11-04 12:00] VITALS: BP 92/48
[2016-11-04 12:23] LABS: Allen Test Modified; Base Excess 4.1 mmol/L (-2.0-2.0); Blood 02Sat 98.1 % (96-100); Blood COHb 0.3 % (0.5-1.5); Blood MetHb 0.3 % (0.0-1.5); HCO3 30.4 mmol/L (22-26.0); HHb 1.9 % (0.0-5.0); MODE MASK - NRB; O2Hb 97.5 % (94.0-97.0); PCO2 54.5 mmHg (35.0-45.0); PCO2(T) 54.5 mmHg (35.0-45.0); PO2 149.5 mmHg (80.0-100.0); PO2(T) 149.5 mmHg (80.0-100.0); Room 0219T; Sample Type Arterial; pH 7.364 (7.350-7.450)
[2016-11-04] MEDS: NOREPINEPHRINE BITARTRATE 250 ML IV SCH (13:15)
[2016-11-04 16:17] VITALS: BP 118/53
[2016-11-04] MEDS: MICAFUNGIN SODIUM 100 MG in SODIUM CHL 0.9% 100 ML IV SCH (18:00)
[2016-11-04 19:02] VITALS: BP 106/51
[2016-11-04 19:53] VITALS: BP 107/51
[2016-11-04 23:43] VITALS: BP 107/52
[2016-11-05 03:58] VITALS: BP 106/50
[2016-11-05] MEDS: IPRATROPIUM BROM 0.5 MG/2.5ML INH SOL NEB SCH ×3 (05:53→19:00)
[2016-11-05] MEDS: LEVALBUTEROL HCL 1.25 MG/0.5 ML NEB SOLN HHN SCH ×3 (05:53→19:00)
[2016-11-05 08:00] VITALS: BP 93/51
[2016-11-05] MEDS: PRO-STAT 64 30ML PO SCH ×2 (08:24→18:00)
[2016-11-05] MEDS: LACTULOSE 20Gm/30ML SOLN PO SCH (09:28)
[2016-11-05] MEDS: METOPROLOL TARTRATE 25 MG TAB PO SCH ×2 (09:32→21:30)
[2016-11-05] MEDS: DIGOXIN 0.25 MG TAB PO SCH (09:32)
[2016-11-05] MEDS: FUROSEMIDE 40 MG/4 ML VIAL IV SCH (09:33)
[2016-11-05] MEDS: DRONEDARONE HCL 400 MG TAB PO SCH ×2 (09:43→21:30)
[2016-11-05] MEDS: APIXABAN 2.5 MG TAB PO SCH ×2 (09:47→21:30)
[2016-11-05 12:00] VITALS: BP 97/46
[2016-11-05] MEDS: NOREPINEPHRINE BITARTRATE 250 ML IV SCH (13:15)
[2016-11-05 16:00] VITALS: BP 104/44
[2016-11-05] MEDS: MICAFUNGIN SODIUM 100 MG in SODIUM CHL 0.9% 100 ML IV SCH (18:32)
[2016-11-05 19:39] VITALS: BP 97/45
[2016-11-06] MEDS: IPRATROPIUM BROM 0.5 MG/2.5ML INH SOL NEB SCH ×5 (01:01→23:11)
[2016-11-06] MEDS: LEVALBUTEROL HCL 1.25 MG/0.5 ML NEB SOLN HHN SCH ×5 (01:01→23:11)
[2016-11-06 08:00] VITALS: BP 120/56
[2016-11-06] MEDS: PRO-STAT 64 30ML PO SCH ×2 (08:00→18:00)
[2016-11-06] MEDS: DRONEDARONE HCL 400 MG TAB PO SCH ×2 (10:00→21:01)
[2016-11-06] MEDS: DIGOXIN 0.25 MG TAB PO SCH (10:00)
[2016-11-06] MEDS: METOPROLOL TARTRATE 25 MG TAB PO SCH ×2 (10:00→22:00)
[2016-11-06] MEDS: LACTULOSE 20Gm/30ML SOLN PO SCH (10:11)
[2016-11-06] MEDS: FUROSEMIDE 40 MG/4 ML VIAL IV SCH (10:35)
[2016-11-06] MEDS: APIXABAN 2.5 MG TAB PO SCH ×2 (10:36→21:01)
[2016-11-06 11:47] LABS: Base Excess 7.7 mmol/L (-2.0-2.0); Blood 02Sat 96.2 % (96-100); Blood COHb 0.6 % (0.5-1.5); Blood MetHb 0.3 % (0.0-1.5); HCO3 34.3 mmol/L (22-26.0); HHb 3.8 % (0.0-5.0); MODE MASK - VENTI 50%; O2Hb 95.3 % (94.0-97.0); PCO2 59.1 mmHg (35.0-45.0); PCO2(T) 59.1 mmHg (35.0-45.0); PO2 97.4 mmHg (80.0-100.0); PO2(T) 97.4 mmHg (80.0-100.0); Room 0261D; Sample Type Arterial; pH 7.381 (7.350-7.450)
[2016-11-06 11:53] VITALS: BP 113/43
[2016-11-06] MEDS: NOREPINEPHRINE BITARTRATE 250 ML IV SCH (12:29)
[2016-11-06] MEDS ORDERED: FUROSEMIDE 40 MG/4 ML VIAL IV ONE (13:45)
[2016-11-06] MEDS: ALBUMIN 25% 100 ML IV SCH ×2 (14:20→21:01)
[2016-11-06 15:48] VITALS: BP 106/53
[2016-11-06 16:08] VITALS: BP 106/53
[2016-11-06] MEDS ORDERED: POTASSIUM CHL 10% (20 MEQ/15ML) ORAL SOLN PO ONE (17:00)
[2016-11-06] MEDS: MICAFUNGIN SODIUM 100 MG in SODIUM CHL 0.9% 100 ML IV SCH (17:56)
[2016-11-06 19:59] VITALS: BP 111/45
[2016-11-07] VITALS: BP 107/56
[2016-11-07 04:00] VITALS: BP 108/52
[2016-11-07] MEDS: IPRATROPIUM BROM 0.5 MG/2.5ML INH SOL NEB SCH ×4 (05:37→22:26)
[2016-11-07] MEDS: LEVALBUTEROL HCL 1.25 MG/0.5 ML NEB SOLN HHN SCH ×4 (05:38→22:26)
[2016-11-07] MEDS: ALBUMIN 25% 100 ML IV SCH ×3 (05:52→21:35)
[2016-11-07] MEDS: DIGOXIN 0.25 MG TAB PO SCH (10:00)
[2016-11-07] MEDS: METOPROLOL TARTRATE 25 MG TAB PO SCH ×2 (10:00→21:36)
[2016-11-07] MEDS: FUROSEMIDE 40 MG/4 ML VIAL IV SCH (10:14)
[2016-11-07] MEDS: LACTULOSE 20Gm/30ML SOLN PO SCH (10:15)
[2016-11-07] MEDS: APIXABAN 2.5 MG TAB PO SCH ×2 (10:15→21:36)
[2016-11-07] MEDS: PRO-STAT 64 30ML PO SCH ×2 (10:15→18:07)
[2016-11-07] MEDS: POTASSIUM CHL 10% (20 MEQ/15ML) ORAL SOLN PO SCH (10:15)
[2016-11-07] MEDS: DRONEDARONE HCL 400 MG TAB PO SCH ×2 (10:16→21:35)
[2016-11-07 11:57] VITALS: BP 107/57
[2016-11-07] MEDS: NOREPINEPHRINE BITARTRATE 250 ML IV SCH (13:15)
[2016-11-07 15:48] VITALS: BP 112/46
[2016-11-07] MEDS ORDERED: LACTULOSE 20Gm/30ML SOLN PO PRN (17:00)
[2016-11-07] MEDS: MICAFUNGIN SODIUM 100 MG in SODIUM CHL 0.9% 100 ML IV SCH (18:07)
[2016-11-07] MEDS: cefTRIAXone 1GM/50ML D5W 50 ML IV SCH (19:59)
[2016-11-07 20:00] VITALS: BP 128/64
[2016-11-08 00:01] VITALS: BP 116/62
[2016-11-08 03:45] VITALS: BP 117/55
[2016-11-08] MEDS: IPRATROPIUM BROM 0.5 MG/2.5ML INH SOL NEB SCH ×4 (05:41→22:09)
[2016-11-08] MEDS: LEVALBUTEROL HCL 1.25 MG/0.5 ML NEB SOLN HHN SCH ×4 (05:41→22:09)
[2016-11-08] MEDS: ALBUMIN 25% 100 ML IV SCH ×3 (05:56→21:48)
[2016-11-08 06:59] LABS: Albumin 3.2 g/dL (3.4-5.0); BUN/Creatinine Ratio 31.3; Calcium 7.8 mg/dL (8.5-10.1); Phosphorus 2.6 mg/dL (2.5-4.90); Potassium 3.9 mmol/L (3.5-5.1); Total Protein 5.5 g/dL (6.4-8.2)
[2016-11-08 08:00] VITALS: BP 114/56
[2016-11-08] MEDS: cefTRIAXone 1GM/50ML D5W 50 ML IV SCH (08:56)
[2016-11-08] MEDS: METOPROLOL TARTRATE 25 MG TAB PO SCH ×2 (10:00→21:40)
[2016-11-08] MEDS: DIGOXIN 0.25 MG TAB PO SCH (10:00)
[2016-11-08] MEDS: APIXABAN 2.5 MG TAB PO SCH ×2 (10:18→21:34)
[2016-11-08] MEDS: FUROSEMIDE 40 MG/4 ML VIAL IV SCH (10:18)
[2016-11-08] MEDS: DRONEDARONE HCL 400 MG TAB PO SCH ×2 (10:19→21:35)
[2016-11-08] MEDS: POTASSIUM CHL 10% (20 MEQ/15ML) ORAL SOLN PO SCH (10:19)
[2016-11-08 12:00] VITALS: BP 127/48
[2016-11-08] MEDS: NOREPINEPHRINE BITARTRATE 250 ML IV SCH (12:29)
[2016-11-08 16:00] VITALS: BP 119/63
[2016-11-08] MEDS: MICAFUNGIN SODIUM 100 MG in SODIUM CHL 0.9% 100 ML IV SCH (18:10)
[2016-11-08 19:56] VITALS: BP 130/61
[2016-11-08] MEDS ORDERED: FUROSEMIDE 40 MG/4 ML VIAL IV ONE (22:30)
[2016-11-09] MEDS: LEVALBUTEROL HCL 1.25 MG/0.5 ML NEB SOLN HHN SCH ×4 (06:28→22:10)
[2016-11-09] MEDS: IPRATROPIUM BROM 0.5 MG/2.5ML INH SOL NEB SCH ×4 (06:28→22:10)
[2016-11-09 07:30] VITALS: BP 95/51
[2016-11-09] MEDS: cefTRIAXone 1GM/50ML D5W 50 ML IV SCH (09:11)
[2016-11-09] MEDS: DRONEDARONE HCL 400 MG TAB PO SCH (09:12)
[2016-11-09] MEDS: POTASSIUM CHL 10% (20 MEQ/15ML) ORAL SOLN PO SCH (09:12)
[2016-11-09] MEDS: DIGOXIN 0.25 MG TAB PO SCH (09:13)
[2016-11-09 11:42] LABS: Base Excess 0.6 mmol/L (-2.0-2.0); Blood 02Sat 92.6 % (96-100); Blood COHb 0.3 % (0.5-1.5); Blood MetHb 0.3 % (0.0-1.5); HCO3 27.6 mmol/L (22-26.0); HHb 7.4 % (0.0-5.0); MODE MASK - VENTI 50%; PCO2 56.6 mmHg (35.0-45.0); PCO2(T) 56.6 mmHg (35.0-45.0); PO2 79.5 mmHg (80.0-100.0); PO2(T) 79.5 mmHg (80.0-100.0); Room 0261D; Sample Type Arterial; pH 7.306 (7.350-7.450)
[2016-11-09 11:51] LABS: Albumin 3.6 g/dL (3.4-5.0); BUN/Creatinine Ratio 21.1; Bilirubin, Total 1.2 mg/dL (0.2-1.0); Total Protein 5.8 g/dL (6.4-8.2)
[2016-11-09 11:54] LABS: Potassium 5.9 mmol/L (3.5-5.1)
[2016-11-09 12:00] VITALS: BP 99/50
[2016-11-09] MEDS: NOREPINEPHRINE BITARTRATE 250 ML IV SCH (13:15)
[2016-11-09] MEDS ORDERED: BUMETANIDE (0.25 MG/ML) INJ 10ML IV ONE (15:30)
[2016-11-09 15:40] VITALS: BP 97/50
[2016-11-09 16:29] VITALS: BP 97/50
[2016-11-09] MEDS: MICAFUNGIN SODIUM 100 MG in SODIUM CHL 0.9% 100 ML IV SCH (18:08)
[2016-11-10 06:00] VITALS: BP 103/48
[2016-11-10] MEDS: IPRATROPIUM BROM 0.5 MG/2.5ML INH SOL NEB SCH ×4 (06:54→19:28)
[2016-11-10] MEDS: LEVALBUTEROL HCL 1.25 MG/0.5 ML NEB SOLN HHN SCH ×4 (06:54→19:28)
[2016-11-10 07:30] VITALS: BP 121/69
[2016-11-10] MEDS: POTASSIUM CHL 10% (20 MEQ/15ML) ORAL SOLN PO SCH (09:13)
[2016-11-10] MEDS: cefTRIAXone 1GM/50ML D5W 50 ML IV SCH (09:15)
[2016-11-10] MEDS: BUMETANIDE INJECTION 12.5 MG in GIVE UN-DILUTED 0 ML IV SCH ×2 (11:39→23:29)
[2016-11-10] MEDS: BOOST 8 ounces PO SCH ×2 (11:41→17:32)
[2016-11-10] MEDS: SODIUM POLYSTYRENE SULF 15GM/60ML SUSP PO SCH ×2 (11:41→14:00)
[2016-11-10 12:00] VITALS: BP 103/45
[2016-11-10] MEDS: NOREPINEPHRINE BITARTRATE 250 ML IV SCH (13:15)
[2016-11-10 15:46] VITALS: BP 112/56
[2016-11-10 15:55] LABS: Urine Bilirubin Negative (Negative); Urine Color Brown (Yellow); Urine Glucose Normal (Normal); Urine Ketone Negative (Negative); Urine Mucus FEW (None Seen); Urine Nitrite Negative (Negative); Urine RBC 120 /hpf (0 - 4); Urine Squamous Epithelial Cell FEW /hpf (<5); Urine pH 5.5 (5.0-8.0)
[2016-11-10 15:58] LABS: Urine Blood 2+ /uL (Negative)
[2016-11-10] MEDS: FLUCONAZOLE 200MG/100ML 100 ML IV SCH (17:32)
[2016-11-10 20:00] VITALS: BP 115/61
[2016-11-10 23:43] VITALS: BP 110/65
[2016-11-11 03:55] VITALS: BP 115/53
[2016-11-11] MEDS: LEVALBUTEROL HCL 1.25 MG/0.5 ML NEB SOLN HHN SCH ×4 (06:00→22:00)
[2016-11-11] MEDS: IPRATROPIUM BROM 0.5 MG/2.5ML INH SOL NEB SCH ×4 (06:04→22:00)
[2016-11-11] MEDS: BUMETANIDE INJECTION 12.5 MG in GIVE UN-DILUTED 0 ML IV SCH (06:31)
[2016-11-11] MEDS: BOOST 8 ounces PO SCH ×3 (09:00→18:00)
[2016-11-11] MEDS: cefTRIAXone 1GM/50ML D5W 50 ML IV SCH (10:00)
[2016-11-11 12:00] VITALS: BP 115/60
[2016-11-11 12:07] LABS: Vitamin D 25-Hydroxy 21 ng/mL (.); Vitamin D-2 25-Hydroxy <1.0 ng/mL (.)
[2016-11-11] MEDS: NOREPINEPHRINE BITARTRATE 250 ML IV SCH (13:15)
[2016-11-11 16:00] VITALS: BP 107/50
[2016-11-11] MEDS: FLUCONAZOLE 200MG/100ML 100 ML IV SCH (17:30)
[2016-11-11 20:00] VITALS: BP 106/58
[2016-11-11 23:20] VITALS: BP 108/58
[2016-11-12 04:10] VITALS: BP 106/51
[2016-11-12 05:38] LABS: Basophils # (auto) 0 uL; Basophils % (auto) 0.4 % (0.0-2.0); CONDITION Y; DEFINITIVE SEE PRINTOUT; Eosinophils # (auto) 0.1 uL; Hematocrit 32.1 % (36.0-46.0); Lymphocytes # (auto) 0.8 uL; Lymphocytes % (auto) 7.3 % (10.0-50.0); Mean Corpuscular Hemoglobin 29.4 pg (28.0-32.0); Mean Corpuscular Volume 94.7 fL (80.0-100.0); Monocytes # (auto) 1.4 uL; Monocytes % (auto) 12.2 % (0.0-12.0); Neutrophils # (auto) 9.1 uL; Neutrophils % (auto) 79.1 % (37.0-80.0); Platelet Count (auto) 365 10^3/uL (140-450); White Blood Cell 11.6 10^3/uL (4.4-10.8)
[2016-11-12] MEDS: LEVALBUTEROL HCL 1.25 MG/0.5 ML NEB SOLN HHN SCH (05:40)
[2016-11-12] MEDS: IPRATROPIUM BROM 0.5 MG/2.5ML INH SOL NEB SCH (05:40)
[2016-11-12 06:00] LABS: Albumin 3.1 g/dL (3.4-5.0); BUN/Creatinine Ratio 23.4; Bilirubin, Total 0.9 mg/dL (0.2-1.0); Phosphorus 4.8 mg/dL (2.5-4.90); Potassium 4.1 mmol/L (3.5-5.1); Total Protein 5.6 g/dL (6.4-8.2)
[2016-11-12] MEDS: BUMETANIDE INJECTION 12.5 MG in GIVE UN-DILUTED 0 ML IV SCH (06:18)
[2016-11-12 06:55] LABS: Anisocytosis Marked; Platelet Estimate Adequate
[2016-11-12 06:56] LABS: Ovalocytes MODERATE; Polychromasia Slight
[2016-11-12 07:02] LABS: Allen Test Yes; Base Excess 5.1 mmol/L (-2.0-2.0); Blood 02Sat 96.5 % (96-100); Blood COHb 0.2 % (0.5-1.5); Blood MetHb 0.3 % (0.0-1.5); HCO3 33.9 mmol/L (22-26.0); HHb 3.5 % (0.0-5.0); MODE MASK - SIMPLE; PCO2 76.1 mmHg (35.0-45.0); PCO2(T) 76.1 mmHg (35.0-45.0); PO2 105.2 mmHg (80.0-100.0); PO2(T) 105.2 mmHg (80.0-100.0); Room 0261D; Sample Type Arterial; pH 7.267 (7.350-7.450)
[2016-11-12 08:00] VITALS: BP 104/62
[2016-11-12] MEDS: cefTRIAXone 1GM/50ML D5W 50 ML IV SCH (10:30)
[2016-11-12] MEDS: BOOST 8 ounces PO SCH (11:24)
[2016-11-12 12:00] VITALS: BP 104/60
== END 2016-11-12 13:12 | disposition hospice, inpatient (51) | DRG 870 ==
LOC: ER 12:56 → TELE 12:57 → TELE-EAST 09-14 18:15 → DOU IN ICU 09-15 14:30 → TELE-EAST 09-19 21:40 → DOU IN ICU 09-24 13:25 → TELE-EAST 09-26 15:32 → ICU WEST 10-05 23:41 → DOU IN ICU 10-15 14:08 → TELE-CENTR 11-02 23:46 → DOU IN ICU 11-04 19:01
PROVIDERS: ADMIT Internal Medicine; ATTEND Internal Medicine
PROC: 0BC98ZZ Extirpation of Matter from Lingula Bronchus, Via Natural or Artificial Opening Endoscopic (ICD-10-PCS; principal; 2016-09-24 09:15)
PROC: 5A1955Z Respiratory Ventilation, Greater than 96 Consecutive Hours (ICD-10-PCS; 2016-10-06)
PROC: 0BH17EZ Insertion of Endotracheal Airway into Trachea, Via Natural or Artificial Opening (ICD-10-PCS; 2016-10-06)
PROC: 02H633Z Insertion of Infusion Device into Right Atrium, Percutaneous Approach (ICD-10-PCS; 2016-10-06)
PROC: 0W9930Z Drainage of Right Pleural Cavity with Drainage Device, Percutaneous Approach (ICD-10-PCS; 2016-10-06)
PROC: 30233N1 Transfusion of Nonautologous Red Blood Cells into Peripheral Vein, Percutaneous Approach (ICD-10-PCS; 2016-10-26)
DX: A41.9 Sepsis, unspecified organism (principal); J96.21 Acute and chronic respiratory failure with hypoxia; J18.9 Pneumonia, unspecified organism; I50.23 Acute on chronic systolic (congestive) heart failure; N17.0 Acute kidney failure with tubular necrosis; R65.21 Severe sepsis with septic shock; I46.9 Cardiac arrest, cause unspecified; J96.22 Acute and chronic respiratory failure with hypercapnia; E87.1 Hypo-osmolality and hyponatremia; I13.0 Hypertensive heart and chronic kidney disease with heart failure and stage 1 through stage 4 chronic kidney disease, or unspecified chronic kidney disease; I48.1 Persistent atrial fibrillation; I48.92 Unspecified atrial flutter; J44.1 Chronic obstructive pulmonary disease with (acute) exacerbation; J44.0 Chronic obstructive pulmonary disease with (acute) lower respiratory infection; D68.9 Coagulation defect, unspecified; J93.9 Pneumothorax, unspecified; N39.0 Urinary tract infection, site not specified; J90 Pleural effusion, not elsewhere classified; E87.3 Alkalosis; T45.511A Poisoning by anticoagulants, accidental (unintentional), initial encounter; E87.5 Hyperkalemia; N18.3 Chronic kidney disease, stage 3 (moderate); E78.5 Hyperlipidemia, unspecified; Z96.651 Presence of right artificial knee joint; E83.39 Other disorders of phosphorus metabolism; I48.2 Chronic atrial fibrillation; T68.XXXA Hypothermia, initial encounter; E87.6 Hypokalemia; D50.9 Iron deficiency anemia, unspecified; I27.2 Other secondary pulmonary hypertension; R63.4 Abnormal weight loss; Z53.20 Procedure and treatment not carried out because of patient's decision for unspecified reasons; Z87.891 Personal history of nicotine dependence; Z79.01 Long term (current) use of anticoagulants; Z79.899 Other long term (current) drug therapy; Z68.26 Body mass index [BMI] 26.0-26.9, adult; Z88.0 Allergy status to penicillin; Z99.81 Dependence on supplemental oxygen; Z88.1 Allergy status to other antibiotic agents
CPT/HCPCS: 10022; 36415; 36600; 51702; 71010; 74000; 76604; 76775; 76942; 80048; 80053; 80162; 80202; 81001; 82270; 82306; 82553; 82570; 82607; 82728; 82805; 82962; 83010; 83520; 83540; 83550; 83605; 83615; 83735; 83880; 83986; 84100; 84300; 84436; 84443; 84484; 85007; 85025; 85027; 85045; 85379; 85384; 85610; 85730; 86038; 86160; 86256; 86706; 86803; 86850; 86880; 86900; 86901; 86920; 87040; 87070; 87081; 87086; 87088; 87186; 87205; 87340; 87493; 88312; 89051; 93005; 93306; 93970; 94002; 94003; 94640; 94660; 94667; 94668; 96361; 96365; 96375; 96376; 97110; 97116; 97163; 97530; 99291; A4223; C1729; J0171; J0330; J0461; J0696; J1450; J1956; J2001; J2185; J2248; J2250; J3430; J3480; J7060